=== PATIENT | female | born 1960 | race Caucasian/White ===

== ENCOUNTER 2016-11-14 16:10 | Inpatient (IN) | payer MEDICAID, OTHER ==
[~2016-11-14] VITALS: Ht 172.7 cm; Wt 81.9 kg
[~2016-11-14 16:10] MED LIST: APIX5 PO; ASPI325T24 PO; ATOR80TA41 PO; CANA100T PO; CARV12.52 PO; CONTOUR1 XX; DIGO0.25 PO; FURO1TAB93 PO; GLUC1000 PO; GLUCOMETER XX; GLUCOMTESTSTRIPS XX; GLYB5TAB3 PO; KCL10C PO; LISI2.5T3 PO; PACE200T4 PO; PERC10TA27 PO; ULTR50TA PO; WALKER ROLLING
[2016-11-14 16:12] VITALS: BP 108/63; PULSE 71; RESP 18; TEMP 97.9; O2SAT 97
[2016-11-14] MEDS ORDERED: METF1000 PO (16:35)
[2016-11-14] MEDS ORDERED: APIX5TAB PO (16:35)
[2016-11-14] MEDS ORDERED: GLYB2.5T3 PO (16:35)
[2016-11-14] MEDS ORDERED: SPIR25TA PO (16:35)
[2016-11-14] MEDS ORDERED: CARV25TA PO (16:35)
[2016-11-14] MEDS ORDERED: ATOR1TAB18 PO (16:35)
[2016-11-14] MEDS ORDERED: FURO40TA PO (16:35)
[2016-11-14] MEDS ORDERED: LISI10TA3 PO (16:35)
[2016-11-14] MEDS ORDERED: ASPI-110 PO (16:35)
[2016-11-14] MEDS ORDERED: CANA100T PO (16:35)
[2016-11-14] MEDS ORDERED: CLINDAMYCIN INJ 600 MG in SODIUM CHLORIDE 0.9% INJ 100 ML IV ONE (16:45)
--- NOTE | 2016-11-14 16:56 | PD ---
HPI Chief Complaint: Skin Problem Time Seen by Provider: 16:25 Travel History International Travel<30 days: No Contact w/Intl Traveler<30days: No Traveled to known affect area: No History of Present Illness HPI So 56-year-old woman who presents emergent arm with pain and redness in her left second toe now radiating up her leg. She first noticed the toe pain redness and swelling 2 days ago. Since that time she's had streaking redness all the way up her leg and now has patchy redness on her upper thigh and tender lymph nodes. No fevers or chills. No history of previous similar symptoms. No leg swelling. Patient has a history of significant CHF, CAD, diabetes, hypertension, hyperlipidemia, and A. fib. She is on Eliquis. History Past Medical History Narrative Medical CAD, history of CABG CHF Diabetes Hypertension on hyperlipidemia A. fib, on Eliquis Tetanus Vaccination: Unknown Influenza Vaccination: No Menopausal: Yes Social History Alcohol Use: No Tobacco Use: No Allergies-Medications (Allergen,Severity, Reaction): Coded Allergies: No Known Allergies (Unverified , 11/14/16) Reported Meds & Prescriptions Reported Meds & Active Scripts Active Reported Glyburide 2.5 Mg Tab 2.5 Mg PO BID Take with meals at the same time each day Furosemide 40 Mg Tab 40 Mg PO DAILY Carvedilol 25 Mg Tab 25 Mg PO BID Lisinopril 10 Mg Tab 10 Mg PO DAILY Spironolactone 25 Mg Tab 25 Mg PO DAILY Aspirin 81 (Aspirin) 81 Mg Tabdr 81 Mg PO DAILY Metformin (Metformin HCl) 1,000 Mg Tab 1,000 Mg PO BIDPC With meals Eliquis (Apixaban) 5 Mg Tab 5 Mg PO BID Atorvastatin (Atorvastatin Calcium) 80 Mg Tab 40 Mg PO HS Invokana (Canagliflozin) 100 Mg Tab 100 Mg PO DAILY Take before 1st meal of day. Review of Systems Except as stated in HPI: all other systems reviewed are Neg Physical Exam Narrative GENERAL: Well-appearing 56-year-old woman, no acute distress. SKIN: Warm and dry. HEAD: Atraumatic. Normocephalic. EYES: Pupils equal and round. No scleral icterus. No injection or drainage. ENT: No nasal bleeding or discharge. Mucous membranes pink and moist. NECK: Trachea midline. No JVD. CARDIOVASCULAR: Regular rate and rhythm. No murmur appreciated. RESPIRATORY: No accessory muscle use. Clear to auscultation. Breath sounds equal bilaterally. GASTROINTESTINAL: Abdomen soft, non-tender, nondistended. Hepatic and splenic margins not palpable. MUSCULOSKELETAL: No obvious deformities. Left second toe is diffusely edematous and swollen with erythema redness tenderness. There is 2 areas of ulceration with purulent drainage. There is streaking erythema up the medial thigh and leg consistent with lymphangitis. There is tender inguinal adenopathy. Pulses are difficult to palpate. The foot is adequately perfused she does have some stigmata of chronic vascular disease. NEUROLOGICAL: Awake and alert. No obvious cranial nerve deficits. Motor grossly within normal limits. Normal speech. PSYCHIATRIC: Appropriate mood and affect; insight and judgment normal. Data Data Last Documented VS Vital Signs Date Time Temp Pulse Resp B/P Pulse Ox O2 Delivery O2 Flow Rate FiO2 11/14/16 16:12 97.9 71 18 108/63 97 Orders Complete Blood Count With Diff (11/14/16 16:45) Comprehensive Metabolic Panel (11/14/16 16:45) Blood Culture (11/14/16 16:45) Iv Access Insert/Monitor (11/14/16 16:45) Clindamycin Inj (Cleocin Inj) (11/14/16 16:45) Wound Culture And Gram Stain (11/14/16 16:46) Sodium Chlor 0.9% 1000 Ml Inj (Ns 1000 M (11/14/16 17:00) Ciprofloxacin 400 Mg Premix (Cipro 400 M (11/14/16 17:15) Labs Laboratory Tests Test 11/14/16 16:50 White Blood Count 8.3 TH/MM3 Red Blood Count 4.16 MIL/MM3 Hemoglobin 12.3 GM/DL Hematocrit 36.9 % Mean Corpuscular Volume 88.6 FL Mean Corpuscular Hemoglobin 29.4 PG Mean Corpuscular Hemoglobin 33.2 % Concent Red Cell Distribution Width 13.5 % Platelet Count 181 TH/MM3 Mean Platelet Volume 8.7 FL Neutrophils (%) (Auto) 64.6 % Lymphocytes (%) (Auto) 26.1 % Monocytes (%) (Auto) 6.5 % Eosinophils (%) (Auto) 0.6 % Basophils (%) (Auto) 2.2 % Neutrophils # (Auto) 5.3 TH/MM3 Lymphocytes # (Auto) 2.2 TH/MM3 Monocytes # (Auto) 0.5 TH/MM3 Eosinophils # (Auto) 0.0 TH/MM3 Basophils # (Auto) 0.2 TH/MM3 CBC Comment DIFF FINAL Differential Comment Sodium Level 140 MEQ/L Potassium Level 3.9 MEQ/L Chloride Level 103 MEQ/L Carbon Dioxide Level 27.9 MEQ/L Anion Gap 9 MEQ/L Blood Urea Nitrogen 22 MG/DL Creatinine 0.85 MG/DL Estimat Glomerular Filtration 69 ML/MIN Rate Random Glucose 138 MG/DL Calcium Level 8.5 MG/DL Total Bilirubin 0.4 MG/DL Aspartate Amino Transf 26 U/L (AST/SGOT) Alanine Aminotransferase 34 U/L (ALT/SGPT) Alkaline Phosphatase 59 U/L Total Protein 8.1 GM/DL Albumin 3.1 GM/DL [facility] Medical Decision Making Medical Screen Exam Complete: Yes Emergency Medical Condition: Yes Interpretation(s) LABS: CBC unremarkable CMP unremarkable Differential Diagnosis Lymphangitis, cellulitis, diabetic foot infection, sepsis, other Narrative Course Medical decision making So 56-year-old woman presents emergent or the diabetic toe infection associated with no lymphangitis. Wound culture was obtained from purulent drainage from the toe. We'll check labs, IV antibiotics, admission. Diagnosis Primary Impression: Lymphangitis Shmuel Mcneal MD Nov 14, 2016 16:56
[2016-11-14] MEDS ORDERED: SODIUM CHLOR 0.9% 1000 ML INJ 1,000 ML IV SCH (17:00)
[2016-11-14 17:06] LABS: AUTOMATED NEUTROPHIL # 5.3 TH/MM3 (1.8-7.7); BASOPHIL # 0.2 TH/MM3 (0-0.2); BASOPHIL % 2.2 % (0.0-2.0); EOSINOPHIL % 0.6 % (0.0-4.0); HEMATOCRIT 36.9 % (35.0-46.0); HEMO FLAGS DIFF FINAL; LYMPH % 26.1 % (9.0-44.0); LYMPHOCYTE # 2.2 TH/MM3 (1.0-4.8); MEAN CELL VOLUME 88.6 FL (80.0-100.0); MEAN CORPUSCULAR HEMOGLOBIN 29.4 PG (27.0-34.0); MEAN CORPUSCULAR HGB CONC 33.2 % (32.0-36.0); MONO % 6.5 % (0.0-8.0); NEUT % 64.6 % (16.0-70.0); PLATELET COUNT 181 TH/MM3 (150-450); RED BLOOD COUNT 4.16 MIL/MM3 (4.00-5.30); RED CELL DISTRIBUTION WIDTH 13.5 % (11.6-17.2); WHITE BLOOD COUNT 8.3 TH/MM3 (4.0-11.0)
[2016-11-14 17:15] LABS: CHLORIDE 103 MEQ/L (98-107); POTASSIUM 3.9 MEQ/L (3.5-5.1); SODIUM (NA) 140 MEQ/L (136-145)
[2016-11-14] MEDS ORDERED: CIPROFLOXACIN 400 MG PREMIX 200 ML IV ONE (17:15)
[2016-11-14 17:18] LABS: ANION GAP 9 MEQ/L (5-15); BICARBONATE 27.9 MEQ/L (21.0-32.0)
[2016-11-14 17:19] LABS: BLOOD UREA NITROGEN 22 MG/DL (7-18)
[2016-11-14 17:21] LABS: ALT (GPT) 34 U/L (10-53); AST (GOT) 26 U/L (15-37)
[2016-11-14 17:22] LABS: GLOMERULAR FILTRATION RATE 69 ML/MIN (>89)
[2016-11-14 17:23] LABS: TOTAL BILIRUBIN ADULT 0.4 MG/DL (0.2-1.0)
[2016-11-14 17:24] LABS: ALKALINE PHOSPHATASE 59 U/L (45-117)
[2016-11-14] MEDS ORDERED: GLUCAGON 1 MG/ML VIAL OTHER PRN (18:00)
[2016-11-14] MEDS ORDERED: BISACODYL 10 MG SUPP PR PRN (18:00)
[2016-11-14] MEDS ORDERED: NALOXONE HCL 0.4 MG/ML AMP IV PRN (18:00)
[2016-11-14] MEDS ORDERED: ACETAMINOPHEN 325 MG TAB PO PRN (18:00)
[2016-11-14] MEDS ORDERED: DEXTROSE 50% IN WATER 50 ML VIAL(D50) IV PUSH PRN (18:00)
[2016-11-14 18:30] VITALS: BP 121/61; PULSE 79; RESP 18; O2SAT 99
[2016-11-14] MEDS: metFORMIN HCL 500 MG TAB PO SCH (18:41)
[2016-11-14 19:37] VITALS: BP 118/55; PULSE 62; RESP 18; O2SAT 98
[2016-11-14] MEDS: APIXABAN 5 MG TABLET PO SCH (20:05)
[2016-11-14] MEDS: ATORVASTATIN 40 MG TAB PO SCH (20:05)
[2016-11-14] MEDS: glyBURIDE 2.5 MG TAB PO SCH (20:05)
[2016-11-14] MEDS: CARVEDILOL 12.5 MG TAB PO SCH ×2 (20:06→21:00)
[2016-11-14] MEDS: INSULIN NovoLIN REGULAR SUPPLEMENTAL SCALE SQ SCH (20:12)
[2016-11-14] MEDS ORDERED: CARVEDILOL 12.5 MG TAB PO SCH (21:00)
[2016-11-14 22:18] VITALS: BP 114/65; PULSE 60; RESP 16; TEMP 97.5; O2SAT 99
[2016-11-14] MEDS: SODIUM CHLORIDE 0.9% FLUSH 5 ML FLUSH FLUSH SCH (23:08)
[2016-11-14] MEDS: CLINDAMYCIN INJ 600 MG in SODIUM CHLORIDE 0.9% INJ 100 ML IV SCH (23:08)
[2016-11-14] MEDS: ACETAMINOPHEN/HYDROcodone 325 MG/7.5 MG TAB PO PRN (23:16)
[2016-11-15 00:24] VITALS: BP 116/71; PULSE 67; RESP 16; TEMP 98.3; O2SAT 100
[2016-11-15] MEDS: ACETAMINOPHEN/HYDROcodone 325 MG/7.5 MG TAB PO PRN ×5 (05:18→23:07)
[2016-11-15] MEDS: CLINDAMYCIN INJ 600 MG in SODIUM CHLORIDE 0.9% INJ 100 ML IV SCH (05:18)
[2016-11-15] MEDS: glyBURIDE 2.5 MG TAB PO SCH ×2 (06:28→16:52)
[2016-11-15] MEDS: INSULIN NovoLIN REGULAR SUPPLEMENTAL SCALE SQ SCH ×4 (06:28→20:09)
[2016-11-15] MEDS ORDERED: glyBURIDE 2.5 MG TAB PO SCH (07:00)
[2016-11-15 07:34] LABS: CHLORIDE 105 MEQ/L (98-107); POTASSIUM 3.8 MEQ/L (3.5-5.1); SODIUM (NA) 143 MEQ/L (136-145)
[2016-11-15 07:41] LABS: ANION GAP 8 MEQ/L (5-15); BICARBONATE 30.3 MEQ/L (21.0-32.0)
[2016-11-15 07:42] LABS: BLOOD UREA NITROGEN 19 MG/DL (7-18)
[2016-11-15 07:44] LABS: ALT (GPT) 28 U/L (10-53)
[2016-11-15 07:45] LABS: AST (GOT) 20 U/L (15-37); GLOMERULAR FILTRATION RATE 94 ML/MIN (>89)
[2016-11-15 07:46] LABS: TOTAL BILIRUBIN ADULT 0.4 MG/DL (0.2-1.0)
[2016-11-15 07:47] LABS: ALKALINE PHOSPHATASE 54 U/L (45-117)
[2016-11-15 08:00] VITALS: BP 122/69; PULSE 63; RESP 18; TEMP 98.2; O2SAT 99
[2016-11-15] MEDS ORDERED: INVOKANA 100 MG PO SCH (08:00)
--- NOTE | 2016-11-15 08:48 | RADHPO ---
EXAM DATE/TIME: 11/15/2016 08:32 [place] COMPARISON: No previous studies available for comparison. INDICATIONS : Infected left 2nd toe, with redness radiating up left leg, Dropped a can on toe MEDICAL HISTORY : Congestive heart failure. Chronic obstructive pulmonary disease. Diabetes mellitus type II. SURGICAL HISTORY : CABG. ENCOUNTER: Initial ACUITY: 3 days PAIN SCORE: 9/10 LOCATION: Left 2nd toe FINDINGS: Three view examination of the left foot demonstrates no soft tissue swelling, dislocation, or fractur e. The tarsal bones appear intact. The interphalangeal and metatarsophalangeal joints are intact. The calcaneus is intact. Bony mineralization is normal. CONCLUSION: 1. No acute bony abnormalities identified. Josef Mao MD on November 15, 2016 at 8:46 Board Certified Radiologist. This report was verified electronically.
[2016-11-15] MEDS: FUROSEMIDE 40 MG TAB PO SCH (09:13)
[2016-11-15] MEDS: APIXABAN 5 MG TABLET PO SCH ×2 (09:13→20:21)
[2016-11-15] MEDS: metFORMIN HCL 500 MG TAB PO SCH ×2 (09:13→16:52)
[2016-11-15] MEDS: SPIRONOLACTONE 25 MG TAB PO SCH (09:13)
[2016-11-15] MEDS: LISINOPRIL 10 MG TAB PO SCH (09:13)
[2016-11-15] MEDS: INVOKANA 100 MG PO SCH (09:13)
[2016-11-15] MEDS: ASPIRIN EC 81 MG TABEC PO SCH (09:14)
[2016-11-15] MEDS: CARVEDILOL 12.5 MG TAB PO SCH ×2 (09:14→20:21)
[2016-11-15] MEDS: SODIUM CHLORIDE 0.9% FLUSH 5 ML FLUSH FLUSH SCH ×2 (09:16→20:22)
[2016-11-15] MEDS ORDERED: VANCOMYCIN INJ 1,000 MG in SODIUM CHLOR 0.9% 250 ML INJ 250 ML IV ONE (10:15)
[2016-11-15] MEDS ORDERED: Vancomycin Consult Pharmacy 1 EA OTHER SCH (10:15)
[2016-11-15 12:00] VITALS: BP 116/66; PULSE 56; RESP 19; TEMP 97.5; O2SAT 100
--- NOTE | 2016-11-15 12:12 | HHI.HP ---
[facility] Service [facility] Primary Care Physician Non-Staff Admission Diagnosis lymphangitis Diagnoses: (1) Lymphangitis Diagnosis: Principal (2) Cellulitis of toe of left foot Diagnosis: Principal Chief Complaint: Left foot second toe pain and swelling Travel History International Travel<30 Days: No Contact w/Intl Traveler <30 Da: No Traveled to Known Affected Are: No History of Present Illness 56-year-old female with rather complex medical history with hypertension, hyperlipidemia, coronary artery disease status post bypass surgery , diabetes, chronic atrial fibrillation, ischemic cardiomyopathy, congestive heart failure, history of MRSA infection of the sternum who presented to the hospital because of pain and swelling of her left foot second toe. Patient states that 3 days ago she dropped a can on her toe and since then is started developing pain, swelling, redness. She noticed red streaks going up her left leg and she was concerned so she came to the hospital for evaluation. Patient denies any fever, chills, night sweats, rigors. ER physician evaluated the patient and recommended observation the hospital. Review of Systems Constitutional: DENIES: Diaphoretic episodes, Fatigue, Fever, Weight gain, Weight loss, Chills, Dizziness, Change in appetite, Night Sweats Eyes: DENIES: Blurred vision, Diplopia, Eye inflammation, Eye pain, Vision loss , Double Vision Ears, nose, mouth, throat: DENIES: Vertigo, Nasal discharge, Throat pain, Ear Pain, Running Nose, Sinus Pain Respiratory: DENIES: Apneas, Cough, Snoring, Wheezing, Hemoptysis, Sputum production, Shortness of breath Cardiovascular: DENIES: Chest pain, Palpitations, Syncope, Dyspnea on Exertion , Lower Extremity Edema, Orthopnea Gastrointestinal: DENIES: Abdominal pain, Black stools, Bloody stools, Constipation, Diarrhea, Nausea, Vomiting, Difficulty Swallowing, Anorexia Neurologic: DENIES: Abnormal gait, Headache, Localized weakness, Paresthesias, Seizures, Speech Problems, Tremor, Poor Balance Past Family Social History Past Medical History Hypertension Hyperlipidemia Chronic atrial fibrillation Ischemic cardiomyopathy Coronary artery disease Diabetes History of MRSA infection of the sternum Chronic affective pulmonary disease Past Surgical History Coronary bypass surgery Incision and debridement of skin/sternum infection Cholecystectomy Reported Medications Reported Meds & Active Scripts Active Reported Glyburide 2.5 Mg Tab 2.5 Mg PO BID Take with meals at the same time each day Furosemide 40 Mg Tab 40 Mg PO DAILY Carvedilol 25 Mg Tab 25 Mg PO BID Lisinopril 10 Mg Tab 10 Mg PO DAILY Spironolactone 25 Mg Tab 25 Mg PO DAILY Aspirin 81 (Aspirin) 81 Mg Tabdr 81 Mg PO DAILY Metformin (Metformin HCl) 1,000 Mg Tab 1,000 Mg PO BIDPC With meals Eliquis (Apixaban) 5 Mg Tab 5 Mg PO BID Atorvastatin (Atorvastatin Calcium) 80 Mg Tab 40 Mg PO HS Invokana (Canagliflozin) 100 Mg Tab 100 Mg PO DAILY Take before 1st meal of day. Allergies: Coded Allergies: Cipro (Verified Allergy, Intermediate, Itching , 11/14/16) Family History Reviewed is significant for mother having emphysema/COPD Social History Patient quit smoking July 2015, prior to that she smoked one pack a cigarettes a day since she was teenager. Patient drinks alcohol rarely. Patient does smoke marijuana intermittently. Last time she smoked marijuana was 1 1/2 wk ago Physical Exam Vital Signs Vital Signs Date Time Temp Pulse Resp B/P Pulse Ox O2 Delivery O2 Flow Rate FiO2 11/15/16 08:00 98.2 63 18 122/69 99 11/15/16 00:24 98.3 67 16 116/71 100 11/15/16 00:16 18 11/14/16 22:18 97.5 60 16 114/65 99 11/14/16 19:37 62 18 118/55 98 Room Air 11/14/16 19:37 62 18 11/14/16 18:30 79 18 121/61 99 Room Air 11/14/16 16:12 97.9 71 18 108/63 97 Physical Exam GENERAL: Well-developed, well-nourished, in no acute distress. alert and orientated HEENT: Head is normocephalic without any lesions or masses noted. Facial features are symmetric. Eyes: Pupils equal round reactive to light. Extraocular muscles are intact. Conjunctivae were clear. Oropharyngeal: Pharynx without any erythema edema. Tongue is midline without deviation. Buccal mucosa is moist without any masses or lesions NECK: Supple without any masses. Trachea midline no deviation. No JVD, no bruits are appreciated CARDIAC: Regular rhythm, regular rate. S1/S2 are heard. No murmurs gallops or rubs. LUNGS: Clear to auscultation bilaterally. No wheeze, rhonchi or rales. No use of accessory muscles on inspiration or expiration. ABDOMEN: Soft, nontender. Nondistended. Bowel sounds heard in all 4 quadrants. No organomegaly or masses. Negative rebound, negative guarding EXTREMITIES: No edema, pulses are diminished bilaterally. Are able to find by Doppler. No cyanosis or clubbing NEUROLOGY: Mood and affect appear appropriate. Cranial nerves II through XII grossly intact. Muscle strength 5/5 in upper and lower extremities bilaterally. Deep tendon reflexes are 2+ in upper and lower extremities bilaterally. LEFT FOOT: Left foot second digit significant erythema. There is eschar noted on the plantar surface of the lateral aspect. There does appear to be a pustule noted on the medial aspect of the plantar surface of the toe. There is lymphangitis streaking up the medial aspect of her left calf area and erythema noted into the left medial thigh Laboratory Laboratory Tests Test 11/14/16 11/15/16 16:50 06:39 White Blood Count 8.3 Red Blood Count 4.16 Hemoglobin 12.3 Hematocrit 36.9 Mean Corpuscular Volume 88.6 Mean Corpuscular Hemoglobin 29.4 Mean Corpuscular Hemoglobin 33.2 Concent Red Cell Distribution Width 13.5 Platelet Count 181 Mean Platelet Volume 8.7 Neutrophils (%) (Auto) 64.6 Lymphocytes (%) (Auto) 26.1 Monocytes (%) (Auto) 6.5 Eosinophils (%) (Auto) 0.6 Basophils (%) (Auto) 2.2 Neutrophils # (Auto) 5.3 Lymphocytes # (Auto) 2.2 Monocytes # (Auto) 0.5 Eosinophils # (Auto) 0.0 Basophils # (Auto) 0.2 CBC Comment DIFF FINAL Differential Comment Erythrocyte Sedimentation Rate 78 Sodium Level 140 143 Potassium Level 3.9 3.8 Chloride Level 103 105 Carbon Dioxide Level 27.9 30.3 Anion Gap 9 8 Blood Urea Nitrogen 22 19 Creatinine 0.85 0.65 Estimat Glomerular Filtration 69 94 Rate Random Glucose 138 77 Calcium Level 8.5 8.6 Total Bilirubin 0.4 0.4 Aspartate Amino Transf 26 20 (AST/SGOT) Alanine Aminotransferase 34 28 (ALT/SGPT) Alkaline Phosphatase 59 54 C-Reactive Protein 5.30 Total Protein 8.1 7.2 Albumin 3.1 2.8 Date/Time Procedure Status Source Growth 11/14/16 16:55 Aerobic Blood Culture - Preliminary Resulted Blood Peripheral NO GROWTH IN 1 DAY 11/14/16 16:55 Anaerobic Blood Culture - Preliminary Resulted Blood Peripheral NO GROWTH IN 1 DAY 11/14/16 16:50 Gram Stain - Final Resulted Wound Toe 11/14/16 16:50 Wound Culture Resulted Wound Toe Pending Result Diagram: 11/14/16 1650 11/15/16 0639 Imaging Last Impressions Foot X-Ray 11/15/16 0000 Signed Impressions: Service Date/Time: Thursday, November 15, 2016 08:32 - CONCLUSION: 1. No acute bony abnormalities identified. Josef Mao MD Assessment and Plan Assessment and Plan Left foot second digit cellulitis with ascending lymphangitis: Patient was initially started on clindamycin. Patient does have history of MRSA infection as well as diabetic. Will convert antibiotics to vancomycin/Zosyn. Podiatry has been consulted. Awaiting cultures for further evaluation management. X- ray was performed which did not indicate any acute abnormality. Patient does have elevated sedimentation rate and C-reactive protein. We'll monitor closely for improvement. If no significant improvement may need to have MRI of the foot to rule out osteomyelitis. Hypertension, congestive heart failure, extremely cardiomyopathy, coronary artery disease: Continue home medications Diabetes: Accu-Cheks with sliding scale insulin Chronic obstructive point disease: Continue O2 supplementation maintain O2 sats greater than 92%. DuoNeb as needed DVT prevention patient is on Eliquis Written by Darrius Maza PA-C, acting as scribe for Dr. Thompson on 11/15/16 at 1115. The documentation accurately reflects the work and decisions performed face-to- face by Dr. Thompson on 11/15/16 at 1115. Darrius aMza Nov 15, 2016 12:12 Kirsty Thompson MD Nov 15, 2016 19:21
--- NOTE | 2016-11-15 12:17 | MB ---
cc: TIAGO ALFARO DPM DATE OF CONSULTATION: 11/15/2016 REASON FOR CONSULTATION: Left second digit cellulitis, history of injury with proximal lymphangitis. HISTORY OF PRESENT ILLNESS 56-year-old female with injury within the last few days and a redness streaking up her thigh. She has had no nausea, vomiting, fever, chills, however significant pain. PAST MEDICAL HISTORY 1. Coronary artery disease 2. History of coronary artery bypass graft. 3. Congestive heart failure. 4. Diabetes. 5. Hypertension 6. Hyperlipidemia 7. Atrial fibrillation on eliquis. 8. History of MRSA and the open heart surgery had to be reopened and she was on IV antibiotics. She is unsure the antibiotic SOCIAL HISTORY No current tobacco, alcohol, however does have a history of smoking. She quit approximately 1 year ago. ALLERGIES None listed. However, per the patient history of methicillin-resistant Staphylococcus aureus. OUTPATIENT MEDICATIONS: The outpatient medications reviewed, no antibiotics. INPATIENT MEDICATIONS: Also reviewed, she receive clindamycin. However upon speaking with DARCY Maza we decided to add Zosyn and vancomycin. PHYSICAL EXAMINATION VITAL SIGNS: Temperature 98.2, pulse rate is 63, respiratory rate 18, blood pressure 122/69. She is satting 99% on room air. HEAD, EYES, EARS, NOSE, AND THROAT: This is an alert and oriented female seen bedside exhibiting nonlabored respirations. Bilateral lower extremities examined. Right lower extremity there is a superficial abrasion of the base of the second digit. It appears to have healthy eschar however no redness, pus or drainage. Left lower extremity there is noted to be circumferential erythema of the left second digit with plantar lateral eschar measuring approximately 3 mm x 4 mm. There appears to be microabscess but there is no obvious gas there is no obvious fluctuance. There is pain upon palpation. The patient is capable of moving the digit. There is no dislocation. There is redness coming from the base of the toe, coursing up the dorsum of the foot, following lymph anatomy, coursing along the medial thigh, into the distal medial calf area. Pulses are hard to palpate but they are audible via Doppler dorsalis pedis, posterior tibialis and perforating peroneal. All toes are warm. Sensation appears to be intact to light touch and deep pressure. The patient has good muscle strength. LABORATORY FINDINGS White blood cell 0.3, hemoglobin/hematocrit 07/1936, platelet count is 181, ESR 78. Chem-7 sodium 143, potassium 3.8, chloride 105, CO2 30, BUN is 19, random glucose is 77. C-reactive protein is 5.3. X-RAYS Appear to be normal descent of gas in tissue bony erosive process fracture. ASSESSMENT/PLAN Left second digit cellulitis with proximal ascending lymphangitis is it appears that the ER doctor lanced microabscess into the cultures that cultures still pending at this time it says no organisms seen. We did change the antibiotics with vancomycin and Zosyn. This will probably help for better broad-spectrum coverage being this patient is a diabetic with history of methicillin-resistant Staphylococcus aureus. At this point and time no surgery is indicated. However if the toe declares itself or goes gangrenous or ischemic, there is a possibility. At this point and time I do feel that her circulation maybe an issue impending wound healing. She may need arterial Doppler or a vascular evaluation if the patient continues to progress poorly I will reevaluate the patient within the next 24 hours. The patient was discussed with DARCY Maza. JAZ Mercado/marino /10:24 AM /12:06 PM
[2016-11-15] MEDS: PIPERACIL-TAZO 3.375 GM PREMIX 50 ML IV SCH ×3 (13:55→23:52)
[2016-11-15 16:00] VITALS: BP 119/69; PULSE 60; RESP 19; TEMP 97; O2SAT 99
[2016-11-15] MEDS: ATORVASTATIN 40 MG TAB PO SCH (20:21)
[2016-11-15 20:31] VITALS: BP 96/58; PULSE 64; RESP 18; TEMP 98; O2SAT 98
[2016-11-15] MEDS: VANCOMYCIN INJ 1,250 MG in SODIUM CHLOR 0.9% 250 ML INJ 250 ML IV SCH (23:52)
[2016-11-16 00:56] VITALS: BP 110/52; PULSE 61; RESP 20; TEMP 97.2; O2SAT 99
[2016-11-16] MEDS: ACETAMINOPHEN/HYDROcodone 325 MG/7.5 MG TAB PO PRN ×4 (04:43→22:10)
[2016-11-16] MEDS: PIPERACIL-TAZO 3.375 GM PREMIX 50 ML IV SCH (06:18)
[2016-11-16] MEDS: glyBURIDE 2.5 MG TAB PO SCH ×2 (06:18→16:57)
[2016-11-16] MEDS: INSULIN NovoLIN REGULAR SUPPLEMENTAL SCALE SQ SCH (06:21)
[2016-11-16 08:32] VITALS: BP 131/66; PULSE 62; RESP 15; TEMP 96.3; O2SAT 98
[2016-11-16] MEDS: INVOKANA 100 MG PO SCH (08:47)
[2016-11-16] MEDS: CARVEDILOL 12.5 MG TAB PO SCH ×2 (08:48→21:17)
[2016-11-16] MEDS: APIXABAN 5 MG TABLET PO SCH ×2 (08:48→21:17)
[2016-11-16] MEDS: metFORMIN HCL 500 MG TAB PO SCH ×2 (08:48→16:57)
[2016-11-16] MEDS: SPIRONOLACTONE 25 MG TAB PO SCH (08:48)
[2016-11-16] MEDS: LISINOPRIL 10 MG TAB PO SCH (08:48)
[2016-11-16] MEDS: ASPIRIN EC 81 MG TABEC PO SCH (08:49)
[2016-11-16] MEDS: FUROSEMIDE 40 MG TAB PO SCH (08:49)
[2016-11-16] MEDS: SODIUM CHLORIDE 0.9% FLUSH 5 ML FLUSH FLUSH SCH ×2 (08:51→21:19)
--- NOTE | 2016-11-16 10:10 | HHI.PR ---
Subjective Remarks Patient seen and examined today with Dr. Thompson. Patient states she feels less pain in her legs however the toe looks more engorged erythematous and swollen which is not showing improvement on the antibiotic, patient has been afebrile, occasional low temperature Objective Vitals Vital Signs Date Time Temp Pulse Resp B/P Pulse Ox O2 Delivery O2 Flow Rate FiO2 11/16/16 08:32 96.3 62 15 131/66 98 11/16/16 00:56 97.2 61 20 110/52 99 11/15/16 20:31 98.0 64 18 96/58 98 11/15/16 16:00 97.0 60 19 119/69 99 11/15/16 12:00 97.5 56 19 116/66 100 I/O 11/15/16 11/15/16 11/15/16 11/16/16 11/16/16 11/16/16 07:00 15:00 23:00 07:00 15:00 23:00 # Voids 2 Result Diagram: 11/14/16 1650 11/15/16 0639 Objective Remarks GENERAL: Well-developed, well-nourished, in no acute distress. alert and orientated HEENT: Head is normocephalic without any lesions or masses noted. Facial features are symmetric. Eyes: Extraocular muscles are intact. Conjunctivae were clear. NECK: Supple without any masses. Trachea midline no deviation. No JVD, CARDIAC: Regular rhythm, regular rate. S1/S2 are heard. No murmurs gallops or rubs. LUNGS: Clear to auscultation bilaterally. No wheeze, rhonchi or rales. No use of accessory muscles on inspiration or expiration. ABDOMEN: Soft, nontender. Nondistended. Bowel sounds heard in all 4 quadrants. No organomegaly or masses. Negative rebound, negative guarding EXTREMITIES: No edema, pulses are diminished bilaterally. Are able to find by Doppler. No cyanosis or clubbing NEUROLOGY: Mood and affect appear appropriate. Cranial nerves II through XII grossly intact. Moving all extremities, speech is clear LEFT FOOT: Left foot second digit erythema is improving. There is eschar noted on the plantar surface of the lateral aspect. There does appear to be a pustule noted on the medial aspect of the plantar surface of the toe. There is lymphangitis streaking up the medial aspect of her left calf area and erythema noted into the left medial thigh Urinary Catheter: No Vascular Central Line Catheter: No A/P Assessment and Plan Left foot second digit cellulitis with ascending lymphangitis: Still not improving , Patient does have history of MRSA infection as well as diabetic. Continue vancomycin, discontinue Zosyn. Podiatry has been consulted. Cultures showing staph species. X-ray was performed which did not indicate any acute abnormality. Patient does have elevated sedimentation rate and C-reactive protein. We'll consult ID, will check MRI rule out posterior myelitis, monitor CBC Discussed with podiatry and PA Hypertension, congestive heart failure, extremely cardiomyopathy, coronary artery disease: Continue home medications Diabetes: Accu-Cheks with sliding scale insulin. Patient is not required any insulin. Will discontinue Accu-Cheks, sliding scale insulin. Continue to control diabetes with diet and metformin Chronic obstructive point disease: Continue O2 supplementation maintain O2 sats greater than 92%. DuoNeb as needed DVT prevention patient is on Eliquis Written by Darrius Maza PA-C, acting as scribe for Dr. Thompson on 11/16/16 at 1215. The documentation accurately reflects the work and decisions performed face-to- face by Dr. Thompson on 11/16/16 at 1215. Darrius Maza Nov 16, 2016 10:10 Kirsty Thompson MD Nov 16, 2016 16:21
--- NOTE | 2016-11-16 11:07 | PD.POD ---
Subjective Pain score: 6 Remarks toe is burning with mild grown pain, not much better. Past Med/Surg/Social History Past Medical History Respiratory: REPORTS HX OF: COPD Cardiovascular: REPORTS HX OF: Atrial fibrillation, Coronary artery disease, Heart failure, Hyperlipidemia, Hypertension, Myocardial infarction Past Surgical History Gastrointestinal: REPORTS HX OF: Cholecystectomy, DENIES HX OF: Colectomy, total Gynecologic: DENIES HX OF: Hysterectomy Breast: DENIES HX OF: Mastectomy, bilateral (Mammogram 2014), Mastectomy, left , Mastectomy, right Social History Smoking Status: Former Smoker Objective Vital Signs Vital Signs Date Time Temp Pulse Resp B/P Pulse Ox O2 Delivery O2 Flow Rate FiO2 11/16/16 08:32 96.3 62 15 131/66 98 11/16/16 00:56 97.2 61 20 110/52 99 11/15/16 20:31 98.0 64 18 96/58 98 11/15/16 16:00 97.0 60 19 119/69 99 11/15/16 12:00 97.5 56 19 116/66 100 Coded Allergies: Cipro (Verified Allergy, Intermediate, Itching , 11/14/16) Medications and IVs Administered Medications Medications (Trade) Dose Ordered Sig/Johnnie Route PRN Reason Start Time Stop Time Status Last Admin Dose Admin IV Flush (NS Flush) 2 ml BID FLUSH 11/14/16 21:00 11/16/16 08:51 Acetaminophen/ Hydrocodone Bitart ([place] 7.5-325 Mg) 1 tab Q4H PRN PO PAIN SCALE 6 TO 10 11/14/16 18:00 11/16/16 08:46 Apixaban (Eliquis) 5 mg BID PO 11/14/16 21:00 11/16/16 08:48 Aspirin (Ecotrin Ec) 81 mg DAILY PO 11/15/16 09:00 11/16/16 08:49 Atorvastatin Calcium (Lipitor) 40 mg HS PO 11/14/16 21:00 11/15/16 20:21 Furosemide (Lasix) 40 mg DAILY PO 11/15/16 09:00 11/16/16 08:49 Lisinopril (Prinivil) 10 mg DAILY PO 11/15/16 09:00 11/16/16 08:48 Metformin HCl (Glucophage) 1,000 mg BIDPC PO 11/14/16 18:00 11/16/16 08:48 Spironolactone (Aldactone) 25 mg DAILY PO 11/15/16 09:00 11/16/16 08:48 Carvedilol (Coreg) 25 mg BID PO 11/14/16 19:30 11/16/16 08:48 Glyburide (Diabeta) 2.5 mg BIDAC PO 11/14/16 19:30 11/16/16 06:18 Patient Own Medication PT OWN MED:INVOKANA 100MG DAILYAC PO 11/15/16 08:00 11/16/16 08:47 Vancomycin HCl/ Sodium Chloride (Vancomycin Inj/ NS 250 ml Inj) 262.5 ml @ 250 mls/hr Q12H IV 11/16/16 00:00 11/15/16 23:52 Other Results Laboratory Tests Test 11/14/16 16:50 White Blood Count 8.3 TH/MM3 Red Blood Count 4.16 MIL/MM3 Hemoglobin 12.3 GM/DL Hematocrit 36.9 % Mean Corpuscular Volume 88.6 FL Mean Corpuscular Hemoglobin 29.4 PG Mean Corpuscular Hemoglobin 33.2 % Concent Red Cell Distribution Width 13.5 % Platelet Count 181 TH/MM3 Mean Platelet Volume 8.7 FL Neutrophils (%) (Auto) 64.6 % Lymphocytes (%) (Auto) 26.1 % Monocytes (%) (Auto) 6.5 % Eosinophils (%) (Auto) 0.6 % Basophils (%) (Auto) 2.2 % Neutrophils # (Auto) 5.3 TH/MM3 Lymphocytes # (Auto) 2.2 TH/MM3 Monocytes # (Auto) 0.5 TH/MM3 Eosinophils # (Auto) 0.0 TH/MM3 Basophils # (Auto) 0.2 TH/MM3 CBC Comment DIFF FINAL Differential Comment Erythrocyte Sedimentation Rate 78 mm/hr Laboratory Tests Test 11/14/16 11/15/16 16:50 06:39 Sodium Level 140 MEQ/L 143 MEQ/L Potassium Level 3.9 MEQ/L 3.8 MEQ/L Chloride Level 103 MEQ/L 105 MEQ/L Carbon Dioxide Level 27.9 MEQ/L 30.3 MEQ/L Anion Gap 9 MEQ/L 8 MEQ/L Blood Urea Nitrogen 22 MG/DL 19 MG/DL Creatinine 0.85 MG/DL 0.65 MG/DL Estimat Glomerular Filtration 69 ML/MIN 94 ML/MIN Rate Random Glucose 138 MG/DL 77 MG/DL Calcium Level 8.5 MG/DL 8.6 MG/DL Total Bilirubin 0.4 MG/DL 0.4 MG/DL Aspartate Amino Transf 26 U/L 20 U/L (AST/SGOT) Alanine Aminotransferase 34 U/L 28 U/L (ALT/SGPT) Alkaline Phosphatase 59 U/L 54 U/L C-Reactive Protein 5.30 MG/DL Total Protein 8.1 GM/DL 7.2 GM/DL Albumin 3.1 GM/DL 2.8 GM/DL Microbiology Date/Time Procedure Status Source Growth 11/14/16 16:50 Aerobic Blood Culture - Preliminary Resulted Blood Peripheral NO GROWTH IN 1 DAY 11/14/16 16:50 Anaerobic Blood Culture - Preliminary Resulted Blood Peripheral NO GROWTH IN 1 DAY 11/14/16 16:50 Gram Stain - Final Resulted Wound Toe 11/14/16 16:50 Wound Culture - Preliminary Resulted Staphylococcus Species 11/14/16 16:55 Aerobic Blood Culture - Preliminary Resulted Blood Peripheral NO GROWTH IN 1 DAY 11/14/16 16:55 Anaerobic Blood Culture - Preliminary Resulted Blood Peripheral NO GROWTH IN 1 DAY awaiting sens Exam-Podiatry Remarks Left foot with 2nd digit entire digit redness with plantar latera eschar and plantar medial micro abscess, red streaking remains along the medial calf and leg Assessment & Plan A/P Left 2nd digit micro abscess eschar with cellulitis. Continue IV ABX awaiting Sens of staph, no surgery planned at this point, no open wound, will continue to be available, if no improvement over next day, may recommend MRI left foot. Juanjo Sweet DPM Nov 16, 2016 11:07
[2016-11-16] MEDS: VANCOMYCIN INJ 1,250 MG in SODIUM CHLOR 0.9% 250 ML INJ 250 ML IV SCH ×2 (12:08→23:49)
[2016-11-16 12:43] VITALS: BP 113/62; PULSE 59; RESP 15; TEMP 97.9; O2SAT 98
[2016-11-16] MEDS: ACETAMINOPHEN/HYDROcodone 325 MG/5 MG TAB PO PRN (13:39)
[2016-11-16 17:16] VITALS: BP 112/71; PULSE 61; RESP 14; TEMP 97.9; O2SAT 97
--- NOTE | 2016-11-16 17:27 | PD.CONS ---
History of Present Illness Service Infectious disease Consult Requested By Dr Thompson Reason for Consult Evaluate patient with toe infection, not improving Primary Care Physician Non-Staff Diagnoses: History of Present Illness Patient seen and examined. Records reviewed. Patient is a 56-year-old female presented to the hospital when she had noticed redness and swelling of her left second toe. She doesn't really remember how she got it. There was mention that she might have dropped a can on her toe. She has neuropathy and really could not recall any incident or any injury due to her neuropathy. She walks around in the yard usually wearing flip-flops. She has not had any recollection of any puncture wound. She started noticing redness going up her foot and leg. There was an area of swelling on the lateral aspect of that second toe, and her friends tried squeezing it but nothing came out. She presented to the hospital for further evaluation and treatment. Apparently in the ED they took some culture from some pustules that was noted on her second toe. She has not been febrile. Her WBC on admission was normal. Sedimentation rate is 78, and C-reactive protein was 5.3. Patient has been on IV vancomycin and Zosyn. The culture from the ED is growing 1 CFU all staph species. X-ray of the toe did not show any evidence of abnormality. Podiatry has been following the patient. Infectious disease consultation has been requested to evaluate the patient. Review of Systems Constitutional: DENIES: Fever, Chills, Night Sweats Eyes: DENIES: Eye pain Ears, nose, mouth, throat: DENIES: Nasal discharge, Oral lesions, Throat pain, Ear Pain, Sinus Pain Respiratory: DENIES: Cough, Shortness of breath Cardiovascular: DENIES: Chest pain, Palpitations, Syncope Gastrointestinal: DENIES: Abdominal pain, Diarrhea, Nausea, Vomiting, Difficulty Swallowing Genitourinary: DENIES: Urinary frequency, Dysuria Musculoskeletal: DENIES: Joint pain, Joint Swelling Integumentary: DENIES: Rash Neurologic: DENIES: Headache Psychiatric: DENIES: Confusion, Hallucinations Past Family Social History Allergies: Coded Allergies: Cipro (Verified Allergy, Intermediate, Itching , 11/14/16) Past Medical History Hypertension Hyperlipidemia Chronic atrial fibrillation Ischemic cardiomyopathy Coronary artery disease Diabetes History of sternal wound infection treated with debridement, wound VAC, and several weeks of IV antibiotics Chronic affective pulmonary disease Past Surgical History Coronary artery bypass surgery February 2016 Incision and debridement of wound infection Cholecystectomy Active Ordered Medications Tylenol [place] Eliquis Aspirin Lipitor Dulcolax Coreg Lasix DiaBeta Prinivil Glucophage Zofran Invokana Aldactone Vancomycin Social History Patient quit smoking July 2015, prior to that she smoked one pack a cigarettes a day since she was teenager. Patient drinks alcohol rarely. Patient does smoke marijuana intermittently. Last time she smoked marijuana was 1 1/2 wk ago Physical Exam Vital Signs Vital Signs Date Time Temp Pulse Resp B/P Pulse Ox O2 Delivery O2 Flow Rate FiO2 11/16/16 17:16 97.9 61 14 112/71 97 11/16/16 12:43 97.9 59 15 113/62 98 11/16/16 08:32 96.3 62 15 131/66 98 11/16/16 00:56 97.2 61 20 110/52 99 11/15/16 20:31 98.0 64 18 96/58 98 Physical Exam GENERAL: This is a well-nourished, well-developed female, awake and alert, in no apparent distress. SKIN: Cool and dry, no generalized rash or ecchymosis. No embolic lesions noted. HEAD: Atraumatic. Normocephalic. No temporal or scalp tenderness. EYES: [place] conjunctivae. Pupils equal round and reactive. Extraocular motions intact. No scleral icterus. No injection or drainage. ENT: Nose without bleeding, or purulent drainage. Moist oral mucosa. Throat without erythema, or exudate. Uvula midline. Airway patent. NECK: Trachea midline. No JVD or lymphadenopathy. Supple, nontender, no meningeal signs. CARDIOVASCULAR: Regular rate and rhythm without murmurs, gallops, or rubs. Healed sternotomy incision. RESPIRATORY: Clear to auscultation. Breath sounds equal bilaterally. No wheezes , rales, or rhonchi. GASTROINTESTINAL: Abdomen soft, non-tender, nondistended. Bowel sounds are present and normoactive. No hepato-splenomegaly, or palpable masses. No guarding. MUSCULOSKELETAL: RLE: unremarkable, without clubbing, cyanosis, or edema. No joint tenderness, effusion, or edema noted. No calf tenderness. LLE: Has red and swollen second toe with a pustule at tip. There is a black scab lateral to the pustule. She has nodular lymphangitis going up dorsum of her L foot, whole leg, and has several tender LN in her L groin. No joint effusion, no calf tenderness. NEUROLOGICAL: Awake and alert. Cranial nerves II through XII intact. Motor and sensory grossly within normal limits. Five out of 5 muscle strength in all muscle groups. Normal speech. PSYCH: Normal affect, calm and cooperative LINE: PIV with no evidence of infection Laboratory Date/Time Procedure Status Source Growth 11/14/16 16:55 Aerobic Blood Culture - Preliminary Resulted Blood Peripheral NO GROWTH IN 2 DAYS 11/14/16 16:55 Anaerobic Blood Culture - Preliminary Resulted Blood Peripheral NO GROWTH IN 2 DAYS 11/14/16 16:50 Gram Stain - Final Resulted Wound Toe 11/14/16 16:50 Wound Culture - Preliminary Resulted Staphylococcus Species Result Diagram: 11/14/16 1650 11/15/16 0639 Imaging RADIOLOGY STUDIES/FILMS REVIEWED Foot X-Ray 11/15/16 0000 Signed Impressions: Service Date/Time: Tuesday, November 15, 2016 08:32 - CONCLUSION: 1. No acute bony abnormalities identified. Josef Mao MD Assessment and Plan Assessment and Plan IMPRESSION Infection L 2nd toe, with nodular lymphangitis, etiology>? - ?usual pathogens, vs unusual pathogens like nocardia, atypical mycobacterial, fungal though not really getting any history for that Known DM CAD RECOMMENDATION Continue Vanco Would like to keep GNR coverage until work-up results available Add Biaxin and Bactrim I obtained C/S from the pustule and will send for routine, AFB and fungal May need to do LN biopsy if not improving Monitor progress I will follow along with you Thank you for this consultation Discussed Condition With Explained plan to the patient Svetlana Yeh MD Nov 16, 2016 17:27
[2016-11-16] MEDS: CEFEPIME INJ 2,000 MG in SODIUM CHLORIDE 0.9% INJ 100 ML IV SCH (18:15)
[2016-11-16] MEDS: SULFAMETHOXAZOLE-TRIMETHOPRIM DS 800-160 MG TAB PO SCH (18:15)
[2016-11-16 21:00] VITALS: BP 120/76; PULSE 66; RESP 16; TEMP 98; O2SAT 98
[2016-11-16] MEDS: ATORVASTATIN 40 MG TAB PO SCH (21:17)
[2016-11-16] MEDS: CLARITHROMYCIN 500 MG TAB PO SCH (21:17)
[2016-11-16] MEDS ORDERED: PHARMACY ORDERED LAB XX ONE (23:45)
[2016-11-17 01:17] VITALS: BP 113/63; PULSE 64; RESP 18; TEMP 98.2; O2SAT 98
[2016-11-17] MEDS: SULFAMETHOXAZOLE-TRIMETHOPRIM DS 800-160 MG TAB PO SCH ×3 (02:53→16:48)
[2016-11-17] MEDS: ACETAMINOPHEN/HYDROcodone 325 MG/7.5 MG TAB PO PRN ×5 (02:53→20:56)
[2016-11-17 06:09] LABS: AUTOMATED NEUTROPHIL # 6.2 TH/MM3 (1.8-7.7); BASOPHIL % 0.5 % (0.0-2.0); EOSINOPHIL # 0.1 TH/MM3 (0-0.4); EOSINOPHIL % 1.2 % (0.0-4.0); HEMATOCRIT 36.8 % (35.0-46.0); HEMO FLAGS DIFF FINAL; LYMPH % 24.5 % (9.0-44.0); LYMPHOCYTE # 2.3 TH/MM3 (1.0-4.8); MEAN CELL VOLUME 89.6 FL (80.0-100.0); MEAN CORPUSCULAR HEMOGLOBIN 30.4 PG (27.0-34.0); MONO % 6.4 % (0.0-8.0); NEUT % 67.4 % (16.0-70.0); PLATELET COUNT 223 TH/MM3 (150-450); RED BLOOD COUNT 4.11 MIL/MM3 (4.00-5.30); RED CELL DISTRIBUTION WIDTH 13.2 % (11.6-17.2); WHITE BLOOD COUNT 9.2 TH/MM3 (4.0-11.0)
[2016-11-17] MEDS: CEFEPIME INJ 2,000 MG in SODIUM CHLORIDE 0.9% INJ 100 ML IV SCH ×2 (06:16→16:47)
[2016-11-17] MEDS: glyBURIDE 2.5 MG TAB PO SCH ×2 (06:16→16:48)
[2016-11-17 06:21] LABS: POTASSIUM 3.7 MEQ/L (3.5-5.1)
[2016-11-17 06:23] LABS: BICARBONATE 28.2 MEQ/L (21.0-32.0)
[2016-11-17 08:00] VITALS: BP 102/62; PULSE 57; RESP 16; TEMP 97.8; O2SAT 96
--- NOTE | 2016-11-17 09:03 | PD.POD ---
Subjective Pain score: 6 Remarks toe is better, mild grown pain, not much better. Past Med/Surg/Social History Past Medical History Respiratory: REPORTS HX OF: COPD Cardiovascular: REPORTS HX OF: Atrial fibrillation, Coronary artery disease, Heart failure, Hyperlipidemia, Hypertension, Myocardial infarction Past Surgical History Gastrointestinal: REPORTS HX OF: Cholecystectomy, DENIES HX OF: Colectomy, total Gynecologic: DENIES HX OF: Hysterectomy Breast: DENIES HX OF: Mastectomy, bilateral (Mammogram 2014), Mastectomy, left , Mastectomy, right Social History Smoking Status: Former Smoker Objective Vital Signs Vital Signs Date Time Temp Pulse Resp B/P Pulse Ox O2 Delivery O2 Flow Rate FiO2 11/17/16 08:00 97.8 57 16 102/62 96 11/17/16 04:00 11/17/16 01:17 98.2 64 18 113/63 98 11/16/16 21:00 98.0 66 16 120/76 98 11/16/16 19:34 18 11/16/16 17:16 97.9 61 14 112/71 97 11/16/16 12:43 97.9 59 15 113/62 98 Coded Allergies: Cipro (Verified Allergy, Intermediate, Itching , 11/14/16) Exam-Podiatry Remarks Left foot with 2nd digit improved redness with plantar lateral eschar and plantar medial micro abscess has been relieved, red streaking remains along the medial calf and leg Assessment & Plan A/P Left 2nd digit micro abscess eschar with cellulitis. Continue IV ABX awaiting Sens of staph, no surgery planned at this point, no open wound, will continue to be available, MRI pending, Appreciate ID recs. Will sign off to Dr Tijerina. Juanjo Sweet DPM Nov 17, 2016 09:03
[2016-11-17] MEDS: ASPIRIN EC 81 MG TABEC PO SCH (09:07)
[2016-11-17] MEDS: LISINOPRIL 10 MG TAB PO SCH (09:07)
[2016-11-17] MEDS: metFORMIN HCL 500 MG TAB PO SCH ×2 (09:07→16:48)
[2016-11-17] MEDS: INVOKANA 100 MG PO SCH (09:07)
[2016-11-17] MEDS: CLARITHROMYCIN 500 MG TAB PO SCH ×2 (09:07→20:56)
[2016-11-17] MEDS: SPIRONOLACTONE 25 MG TAB PO SCH (09:07)
[2016-11-17] MEDS: APIXABAN 5 MG TABLET PO SCH ×2 (09:07→20:57)
[2016-11-17] MEDS: FUROSEMIDE 40 MG TAB PO SCH (09:07)
[2016-11-17] MEDS: CARVEDILOL 12.5 MG TAB PO SCH ×2 (09:07→20:57)
[2016-11-17] MEDS: SODIUM CHLORIDE 0.9% FLUSH 5 ML FLUSH FLUSH SCH ×2 (09:13→20:58)
--- NOTE | 2016-11-17 10:34 | HHI.IDPN ---
Subjective Subjective Remarks Notes reviewed No fever Areas of lymphangitis very tender to touch Antibiotics Vancomycin Cefepime Bactrim Biaxin Lines PIV Past Medical History Hypertension Hyperlipidemia Chronic atrial fibrillation Ischemic cardiomyopathy Coronary artery disease Diabetes History of sternal wound infection treated with debridement, wound VAC, and several weeks of IV antibiotics Chronic affective pulmonary disease Past Surgical History Coronary artery bypass surgery February 2016 Incision and debridement of wound infection Cholecystectomy Allergies: Coded Allergies: Cipro (Verified Allergy, Intermediate, Itching , 11/14/16) Objective . Vital Signs Date Time Temp Pulse Resp B/P Pulse Ox O2 Delivery O2 Flow Rate FiO2 11/17/16 08:00 97.8 57 16 102/62 96 11/17/16 04:00 11/17/16 01:17 98.2 64 18 113/63 98 11/16/16 21:00 98.0 66 16 120/76 98 11/16/16 19:34 18 11/16/16 17:16 97.9 61 14 112/71 97 11/16/16 12:43 97.9 59 15 113/62 98 11/16/16 11/16/16 11/17/16 15:00 23:00 07:00 Intake Total 1100 ml Balance 1100 ml Intake Oral 1100 ml # Voids 4 5 # Bowel Movements 4 . Laboratory Tests Test 11/17/16 05:35 White Blood Count 9.2 TH/MM3 Red Blood Count 4.11 MIL/MM3 Hemoglobin 12.5 GM/DL Hematocrit 36.8 % Mean Corpuscular Volume 89.6 FL Mean Corpuscular Hemoglobin 30.4 PG Mean Corpuscular Hemoglobin 34.0 % Concent Red Cell Distribution Width 13.2 % Platelet Count 223 TH/MM3 Mean Platelet Volume 8.9 FL Neutrophils (%) (Auto) 67.4 % Lymphocytes (%) (Auto) 24.5 % Monocytes (%) (Auto) 6.4 % Eosinophils (%) (Auto) 1.2 % Basophils (%) (Auto) 0.5 % Neutrophils # (Auto) 6.2 TH/MM3 Lymphocytes # (Auto) 2.3 TH/MM3 Monocytes # (Auto) 0.6 TH/MM3 Eosinophils # (Auto) 0.1 TH/MM3 Basophils # (Auto) 0.0 TH/MM3 CBC Comment DIFF FINAL Differential Comment Laboratory Tests Test 11/17/16 05:35 Sodium Level 143 MEQ/L Potassium Level 3.7 MEQ/L Chloride Level 106 MEQ/L Carbon Dioxide Level 28.2 MEQ/L Anion Gap 9 MEQ/L Blood Urea Nitrogen 15 MG/DL Creatinine 0.64 MG/DL Estimat Glomerular Filtration 96 ML/MIN Rate Random Glucose 60 MG/DL Calcium Level 9.0 MG/DL Microbiology Date/Time Procedure Status Source Growth 11/14/16 16:50 Aerobic Blood Culture - Preliminary Resulted Blood Peripheral NO GROWTH IN 2 DAYS 11/14/16 16:50 Anaerobic Blood Culture - Preliminary Resulted Blood Peripheral NO GROWTH IN 2 DAYS 11/14/16 16:50 Gram Stain - Final Resulted Wound Toe 11/14/16 16:50 Wound Culture - Preliminary Resulted Staphylococcus Species 11/14/16 16:55 Aerobic Blood Culture - Preliminary Resulted Blood Peripheral NO GROWTH IN 2 DAYS 11/14/16 16:55 Anaerobic Blood Culture - Preliminary Resulted Blood Peripheral NO GROWTH IN 2 DAYS 11/16/16 18:00 Gram Stain Received Wound Toe Pending 11/16/16 18:00 Wound Culture Received Wound Toe Pending 11/16/16 18:00 Acid Fast Stain Received Wound Toe Pending 11/16/16 18:00 Mycobacterial Culture Received Wound Toe Pending 11/16/16 18:00 Fungal Smear Received Wound Toe Pending 11/16/16 18:00 Fungal Culture Received Wound Toe Pending Imaging Foot X-Ray 11/15/16 0000 Signed Impressions: Service Date/Time: Tuesday, November 15, 2016 08:32 - CONCLUSION: 1. No acute bony abnormalities identified. Josef Mao MD Physical Exam GENERAL: awake and alert, in no apparent distress. SKIN: Cool and dry, no generalized rash HEAD: Atraumatic. Normocephalic. No temporal or scalp tenderness. EYES: [place] conjunctivae. No scleral icterus. No injection or drainage. ENT: Nose without bleeding, or purulent drainage. Moist oral mucosa. NECK: Trachea midline. No JVD or lymphadenopathy. Supple, nontender, no meningeal signs. CARDIOVASCULAR: Regular rate and rhythm without murmurs, gallops, or rubs. Healed sternotomy incision. RESPIRATORY: Clear to auscultation. Breath sounds equal bilaterally. No wheezes , rales, or rhonchi. GASTROINTESTINAL: Abdomen soft, non-tender, nondistended. Bowel sounds are present and normoactive. No hepato-splenomegaly, or palpable masses. No guarding. MUSCULOSKELETAL: RLE: unremarkable, without clubbing, cyanosis, or edema. No joint tenderness, effusion, or edema noted. No calf tenderness. LLE: Has red and swollen second toe, better. There is a black scab lateral to the pustule. She has nodular lymphangitis going up dorsum of her L foot, whole leg, and has several tender LN in her L groin. The intensity of redness is better, but nodules the same and very sensitive to touch. NEUROLOGICAL: Non-focal PSYCH: Normal affect, calm and cooperative LINE: PIV with no evidence of infection Assessment & Plan Remarks IMPRESSION Infection L 2nd toe, with nodular lymphangitis, etiology>? - ?usual pathogens, vs unusual pathogens like nocardia, atypical mycobacterial, fungal though not really getting any history for that Known DM CAD RECOMMENDATION Continue Vanco Continue Cefepime Continue Biaxin and Bactrim Follow C/S If not showing anything on C/S, will ask surgery to do excision biopsy of lesion in her leg or ankle Monitor progress Explained plan to patient D/W Svetlana Stallworth MD Nov 17, 2016 10:34
[2016-11-17 12:00] VITALS: BP 106/67; PULSE 63; RESP 16; TEMP 99.4; O2SAT 98
--- NOTE | 2016-11-17 13:33 | HHI.PR ---
Subjective Remarks afebrile ,no chills LLE skin lesion and second toe erythma still there but slightly improving Objective Vitals Vital Signs Date Time Temp Pulse Resp B/P Pulse Ox O2 Delivery O2 Flow Rate FiO2 11/17/16 12:00 99.4 63 16 106/67 98 11/17/16 08:00 97.8 57 16 102/62 96 11/17/16 04:00 11/17/16 01:17 98.2 64 18 113/63 98 11/16/16 21:00 98.0 66 16 120/76 98 11/16/16 19:34 18 11/16/16 17:16 97.9 61 14 112/71 97 I/O 11/16/16 11/16/16 11/16/16 11/17/16 11/17/16 11/17/16 07:00 15:00 23:00 07:00 15:00 23:00 Intake Total 1100 ml Balance 1100 ml Intake Oral 1100 ml # Voids 4 5 # Bowel Movements 4 Result Diagram: 11/17/16 0535 11/17/16 0535 Objective Remarks GENERAL: This is a well-nourished, well-developed patient, in no apparent distress. CARDIOVASCULAR: Regular rate and rhythm without murmurs, gallops, or rubs. RESPIRATORY: Clear to auscultation. Breath sounds equal bilaterally. No wheezes , rales, or rhonchi. GASTROINTESTINAL: Abdomen soft, non-tender, nondistended. Normal active bowel sounds MUSCULOSKELETAL: Extremities without clubbing, cyanosis, or edema.LEFT FOOT: Left foot second digit erythema is improving. There is eschar noted on the plantar surface of the lateral aspect. There does appear to be a pustule noted on the medial aspect of the plantar surface of the toe. streaking up the medial aspect of her left calf area and erythema noted into the left medial thigh NEURO: Alert & Oriented x4 to person, place, time, situation. 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 Continue vancomycin, discontinue Zosyn. Podiatry has been consulted as well as iv. Cultures showing staph species. X-ray was performed which did not indicate any acute abnormality. Patient does have elevated sedimentation rate and C-reactive protein. ID suspecting no cardia versus atypical mycobacterial started on Biaxin with Vanco and cefepime, she recommended surgical biopsy, Dr. Menendez graciously will discuss to the surgeon Hypertension, congestive heart failure, extremely cardiomyopathy, coronary artery disease: Continue home medications Diabetes: Accu-Cheks with sliding scale insulin. Patient is not required any insulin. Will discontinue Accu-Cheks, sliding scale insulin. Continue to control diabetes with diet and metformin Chronic obstructive point disease: Continue O2 supplementation maintain O2 sats greater than 92%. DuoNeb as needed DVT prevention patient is on Kirsty Blum MD Nov 17, 2016 13:33
[2016-11-17] MEDS ORDERED: GADODIAMIDE PF 287 MG/ML 20 ML VIAL (for RAD MRI) IV ONE (14:00)
[2016-11-17] MEDS: VANCOMYCIN INJ 1,250 MG in SODIUM CHLOR 0.9% 250 ML INJ 250 ML IV SCH (15:05)
[2016-11-17] MEDS: LACTOBACILLUS ACIDOPHILUS TAB PO SCH ×2 (15:05→20:58)
[2016-11-17 16:00] VITALS: BP 111/78; PULSE 70; RESP 16; TEMP 98.9; O2SAT 98
[2016-11-17] MEDS: ALPRAZolam 0.25 MG TAB PO PRN (16:48)
--- NOTE | 2016-11-17 18:07 | RADHPO ---
EXAM DATE/TIME: 11/17/2016 13:48 [facility] COMPARISON: No previous studies available for comparison. INDICATIONS : Osteomyelitis. Pain and infection. CONTRAST: 16 cc Omniscan (gadodiamide) IV MEDICAL HISTORY : Myocardial infarction. Congestive heart failure. Cardiovascular disease. Afib, high cholesterol, HTN, COPD SURGICAL HISTORY : Cholecystectomy. CABG ENCOUNTER: Initial ACUITY: 4-6 days PAIN SCORE: 9/10 LOCATION: 2nd toe on left foot going up the medial side of foot and lower leg. TECHNIQUE: Multiplanar, multisequence MRI examination was performed without contrast and after the intravenous a dministration of gadolinium. FINDINGS: BONE/CARTILAGE: Bone marrow signal is homogeneous. There are some mild degenerative type changes. MISCELLANEOUS: There is some nonspecific edema in the soft tissues surrounding the metatarsals. No loculated fluid c ollections are seen in the soft tissues. POST-CONTRAST: There are no abnormal areas of enhancement on the post-contrast images. CONCLUSION: There is nonspecific edema in the soft tissues in the region the metatarsals. This is suggestive of c ellulitis. No definite osteomyelitis is seen at this time. No focal loculated fluid collection to ind icate a soft tissue abscess is seen at this time. Gilbert Lundy MD on November 17, 2016 at 18:02 Board Certified Radiologist. This report was verified electronically.
[2016-11-17 20:00] VITALS: BP 137/76; PULSE 64; RESP 18; TEMP 96.7; O2SAT 98
[2016-11-17] MEDS: ATORVASTATIN 40 MG TAB PO SCH (20:56)
[2016-11-18] VITALS: BP 138/80; PULSE 68; RESP 18; TEMP 96.1; O2SAT 96
[2016-11-18] MEDS: VANCOMYCIN INJ 1,250 MG in SODIUM CHLOR 0.9% 250 ML INJ 250 ML IV SCH ×2 (00:10→12:09)
[2016-11-18] MEDS: SODIUM CHLORIDE 0.9% FLUSH 5 ML FLUSH FLUSH PRN ×3 (00:10→17:05)
[2016-11-18] MEDS: SULFAMETHOXAZOLE-TRIMETHOPRIM DS 800-160 MG TAB PO SCH ×3 (01:56→17:05)
[2016-11-18] MEDS: ACETAMINOPHEN/HYDROcodone 325 MG/7.5 MG TAB PO PRN ×5 (02:00→20:52)
[2016-11-18] MEDS: ALPRAZolam 0.25 MG TAB PO PRN ×3 (03:05→20:53)
[2016-11-18] MEDS: CEFEPIME INJ 2,000 MG in SODIUM CHLORIDE 0.9% INJ 100 ML IV SCH (04:59)
[2016-11-18] MEDS: glyBURIDE 2.5 MG TAB PO SCH ×2 (05:59→15:42)
--- NOTE | 2016-11-18 07:27 | PD.POD ---
Subjective Podiatric Problems Pt doing well, no signs of distress or acute issues Pain score: 6 Past Med/Surg/Social History Past Medical History Respiratory: REPORTS HX OF: COPD Cardiovascular: REPORTS HX OF: Atrial fibrillation, Coronary artery disease, Heart failure, Hyperlipidemia, Hypertension, Myocardial infarction Past Surgical History Gastrointestinal: REPORTS HX OF: Cholecystectomy, DENIES HX OF: Colectomy, total Gynecologic: DENIES HX OF: Hysterectomy Breast: DENIES HX OF: Mastectomy, bilateral (Mammogram 2014), Mastectomy, left , Mastectomy, right Social History Smoking Status: Former Smoker Objective Vital Signs Vital Signs Date Time Temp Pulse Resp B/P Pulse Ox O2 Delivery O2 Flow Rate FiO2 11/18/16 00:00 96.1 68 18 138/80 96 11/17/16 20:00 96.7 64 18 137/76 98 11/17/16 16:00 98.9 70 16 111/78 98 11/17/16 12:00 99.4 63 16 106/67 98 11/17/16 08:00 97.8 57 16 102/62 96 Coded Allergies: Cipro (Verified Allergy, Intermediate, Itching , 11/14/16) Other Results MRI shows edema and signs of cellulitis with no definitive osteo of mets or toes left foot and no fluid collection Physical Exam Remarks Neurovascularly intact, with deminished sensation Streaking to knee left leg, improved Mild left second toe edema and redness, improved No drainaghe, sbab distal toe with no appreciable depth Assessment & Plan A/P Left leg cellulitis and second toe edema, no bone infection -Plan to continued IV antibiotics -no surgery planned at this time -Possible oral antibiotics when D/C, will refer that to ID recommendations Gus Tijerina DPM Nov 18, 2016 07:27
[2016-11-18 08:00] VITALS: BP 114/68; PULSE 55; RESP 20; TEMP 97.6; O2SAT 97
[2016-11-18 09:24] VITALS: PULSE 62
[2016-11-18] MEDS: INVOKANA 100 MG PO SCH (09:27)
[2016-11-18] MEDS: SODIUM CHLORIDE 0.9% FLUSH 5 ML FLUSH FLUSH SCH ×2 (09:27→15:45)
[2016-11-18] MEDS: metFORMIN HCL 500 MG TAB PO SCH ×2 (09:28→17:05)
[2016-11-18] MEDS: CARVEDILOL 12.5 MG TAB PO SCH ×2 (09:28→20:52)
[2016-11-18] MEDS: LACTOBACILLUS ACIDOPHILUS TAB PO SCH ×2 (09:28→20:52)
[2016-11-18] MEDS: ASPIRIN EC 81 MG TABEC PO SCH (09:28)
[2016-11-18] MEDS: APIXABAN 5 MG TABLET PO SCH ×2 (09:28→20:52)
[2016-11-18] MEDS: FUROSEMIDE 40 MG TAB PO SCH (09:29)
[2016-11-18] MEDS: CLARITHROMYCIN 500 MG TAB PO SCH ×2 (09:29→20:51)
[2016-11-18] MEDS: SPIRONOLACTONE 25 MG TAB PO SCH (09:29)
[2016-11-18] MEDS: LISINOPRIL 10 MG TAB PO SCH (09:32)
[2016-11-18 12:00] VITALS: BP 120/71; PULSE 109; RESP 20; TEMP 97.2; O2SAT 99
--- NOTE | 2016-11-18 12:35 | HHI.PR ---
Subjective Remarks Follow-up on patient with left foot second digit cellulitis ascending into the calf. Patient reports improvement in swelling and redness today. She is afebrile. No other acute medical complaints at this time. Objective Vitals Vital Signs Date Time Temp Pulse Resp B/P Pulse Ox O2 Delivery O2 Flow Rate FiO2 11/18/16 12:00 97.2 109 20 120/71 99 11/18/16 09:24 62 11/18/16 08:00 97.6 55 20 114/68 97 11/18/16 07:00 18 11/18/16 00:00 96.1 68 18 138/80 96 11/17/16 20:00 96.7 64 18 137/76 98 11/17/16 16:00 98.9 70 16 111/78 98 I/O 11/17/16 11/17/16 11/17/16 11/18/16 11/18/16 11/18/16 07:00 15:00 23:00 07:00 15:00 23:00 Intake Total 630 ml 411 ml 680 ml Balance 630 ml 411 ml 680 ml Intake Oral 630 ml 240 ml IV Total 411 ml 440 ml # Voids 5 3 2 # Bowel Movements 4 1 1 Result Diagram: 11/17/16 0535 11/17/16 0535 Imaging Last 48 hours Impressions Foot MRI 11/17/16 0000 Signed Impressions: Service Date/Time: Thursday, November 17, 2016 13:48 - CONCLUSION: There is nonspecific edema in the soft tissues in the region the metatarsals. This is suggestive of cellulitis. No definite osteomyelitis is seen at this time. No focal loculated fluid collection to indicate a soft tissue abscess is seen at this time. Gilbert Lundy MD Objective Remarks GENERAL: Well-nourished, well-developed patient in NAD. A&Ox3. SKIN: Warm and dry. HEAD: Normocephalic. Atraumatic. EYES: EOMI. CARDIOVASCULAR: Regular rate and rhythm. S1, S2 noted. No murmur appreciated. RESPIRATORY: No accessory muscle use. Clear to auscultation. Breath sounds equal bilaterally. GASTROINTESTINAL: Abdomen soft, non-tender, nondistended. Normoactive bowel sounds x4. MUSCULOSKELETAL: Extremities without clubbing, cyanosis, or edema. EXTREMITIES: Decreased size of lymphadenopathy left groin. Nodular lesions on the left leg appear less indurated and less erythematous. Left second toe less engorged and less erythema. Increased range of motion left second toe with better flexion and extension. NEUROLOGICAL: Awake and alert. No obvious cranial nerve deficits. Motor grossly within normal limits. 5/5 muscle strength in bilateral upper and lower extremities. Diminished sensation left lower extremity distally. Normal speech. PSYCHIATRIC: Appropriate mood and affect; insight and judgment normal. Medications and IVs Last 48 hours Impressions Foot MRI 11/17/16 0000 Signed Impressions: Service Date/Time: Thursday, November 17, 2016 13:48 - CONCLUSION: There is nonspecific edema in the soft tissues in the region the metatarsals. This is suggestive of cellulitis. No definite osteomyelitis is seen at this time. No focal loculated fluid collection to indicate a soft tissue abscess is seen at this time. Gilbert Lundy MD A/P Problem List: (1) Lymphangitis ICD Code: I89.1 Status: Acute (2) Cellulitis of toe of left foot ICD Code: L03.032 Status: Acute Assessment and Plan Left foot second digit cellulitis ascending the calf: Improving , Patient does have history of MRSA infection as well as diabetic. Podiatry has been consulted as well as ID. X-ray was performed which did not indicate any acute abnormality. MRI negative for osteomyelitis which shows nonspecific edema in the soft tissues around the metatarsals suggestive of cellulitis. Patient does have elevated sedimentation rate and C-reactive protein. Podiatry does not plan for any surgery at this time and has deferred antibiotic therapy to IDs recommendations. C/S with beaded GPR, sent out for further identification. ID suspecting nocardia vs atypical mycobacterial. Vanc and Cefepime discontinued. Continue with Biaxin and Bactrim and Rocephin added. Hypertension, congestive heart failure, extreme cardiomyopathy, coronary artery disease: Continue home medications. Blood pressure well controlled. No evidence of fluid overload on exam. Diabetes: Accu-Cheks with sliding scale insulin. Patient has not required any insulin. Accu-Cheks, sliding scale insulin discontinued. Continue to control diabetes with diet and Metformin, Glyburide and Invokana. Chronic obstructive pulmonary disease: Continue O2 supplementation maintain O2 sats greater than 92%. DuoNeb as needed. DVT prevention patient is on Eliquis Written by Luana Marquez, acting as scribe for Dr. Thompson on 11/18/16 at 12:08. Discharge Planning Once cleared by infectious disease Luana Marquez Nov 18, 2016 12:35 Kirsty Thompson MD Nov 19, 2016 11:22
--- NOTE | 2016-11-18 13:21 | HHI.IDPN ---
Subjective Subjective Remarks Notes reviewed No fever Areas of lymphangitis very tender to touch Feels better especially her L groin First C/S now with beaded GPR, Possible nocardia - being sent out Second C/S negative so far Fungal stain negative AFB stain not done yet Antibiotics Vancomycin Cefepime Bactrim Biaxin Lines PIV Past Medical History Hypertension Hyperlipidemia Chronic atrial fibrillation Ischemic cardiomyopathy Coronary artery disease Diabetes History of sternal wound infection treated with debridement, wound VAC, and several weeks of IV antibiotics Chronic affective pulmonary disease Past Surgical History Coronary artery bypass surgery February 2016 Incision and debridement of wound infection Cholecystectomy Allergies: Coded Allergies: No Known Allergies (Unverified , 11/18/16) Objective . Vital Signs Date Time Temp Pulse Resp B/P Pulse Ox O2 Delivery O2 Flow Rate FiO2 11/18/16 12:00 97.2 109 20 120/71 99 11/18/16 09:24 62 11/18/16 08:00 97.6 55 20 114/68 97 11/18/16 07:00 18 11/18/16 00:00 96.1 68 18 138/80 96 11/17/16 20:00 96.7 64 18 137/76 98 11/17/16 16:00 98.9 70 16 111/78 98 11/17/16 11/17/16 11/18/16 15:00 23:00 07:00 Intake Total 630 ml 411 ml 680 ml Balance 630 ml 411 ml 680 ml Intake Oral 630 ml 240 ml IV Total 411 ml 440 ml # Voids 3 2 # Bowel Movements 1 1 . Laboratory Tests Test 11/17/16 05:35 White Blood Count 9.2 TH/MM3 Red Blood Count 4.11 MIL/MM3 Hemoglobin 12.5 GM/DL Hematocrit 36.8 % Mean Corpuscular Volume 89.6 FL Mean Corpuscular Hemoglobin 30.4 PG Mean Corpuscular Hemoglobin 34.0 % Concent Red Cell Distribution Width 13.2 % Platelet Count 223 TH/MM3 Mean Platelet Volume 8.9 FL Neutrophils (%) (Auto) 67.4 % Lymphocytes (%) (Auto) 24.5 % Monocytes (%) (Auto) 6.4 % Eosinophils (%) (Auto) 1.2 % Basophils (%) (Auto) 0.5 % Neutrophils # (Auto) 6.2 TH/MM3 Lymphocytes # (Auto) 2.3 TH/MM3 Monocytes # (Auto) 0.6 TH/MM3 Eosinophils # (Auto) 0.1 TH/MM3 Basophils # (Auto) 0.0 TH/MM3 CBC Comment DIFF FINAL Differential Comment Laboratory Tests Test 11/17/16 05:35 Sodium Level 143 MEQ/L Potassium Level 3.7 MEQ/L Chloride Level 106 MEQ/L Carbon Dioxide Level 28.2 MEQ/L Anion Gap 9 MEQ/L Blood Urea Nitrogen 15 MG/DL Creatinine 0.64 MG/DL Estimat Glomerular Filtration 96 ML/MIN Rate Random Glucose 60 MG/DL Calcium Level 9.0 MG/DL Microbiology Date/Time Procedure Status Source Growth 11/16/16 18:00 Gram Stain - Final Resulted Wound Toe 11/16/16 18:00 Wound Culture - Preliminary Resulted Wound Toe NO GROWTH IN 48 HOURS. 11/16/16 18:00 Acid Fast Stain - Final Resulted Wound Toe NO ACID FAST BACILLI SEEN 11/16/16 18:00 Mycobacterial Culture Resulted Wound Toe Pending 11/16/16 18:00 Fungal Smear - Final Resulted Wound Toe NO FUNGAL ELEMENTS SEEN. 11/16/16 18:00 Fungal Culture Resulted Wound Toe Pending Imaging Foot X-Ray 11/15/16 0000 Signed Impressions: Service Date/Time: Tuesday, November 15, 2016 08:32 - CONCLUSION: 1. No acute bony abnormalities identified. Josef Mao MD Physical Exam GENERAL: awake and alert, in no apparent distress. SKIN: Cool and dry, no generalized rash HEAD: Atraumatic. Normocephalic. No temporal or scalp tenderness. EYES: [place] conjunctivae. No scleral icterus. No injection or drainage. ENT: Nose without bleeding, or purulent drainage. Moist oral mucosa. NECK: Trachea midline. No JVD or lymphadenopathy. Supple, nontender, no meningeal signs. CARDIOVASCULAR: Regular rate and rhythm without murmurs, gallops, or rubs. Healed sternotomy incision. RESPIRATORY: Clear to auscultation. Breath sounds equal bilaterally. No wheezes , rales, or rhonchi. GASTROINTESTINAL: Abdomen soft, non-tender, nondistended. Bowel sounds are present and normoactive. No hepato-splenomegaly, or palpable masses. No guarding. MUSCULOSKELETAL: RLE: unremarkable, without clubbing, cyanosis, or edema. No joint tenderness, effusion, or edema noted. No calf tenderness. LLE: Has red and swollen second toe, better. There is a black scab lateral to the pustule. She has nodular lymphangitis going up dorsum of her L foot, whole leg, and has several tender LN in her L groin. The LN in groin are smaller. The intensity of redness in her leg is better. There is a nodule in upper leg and another one in ankle, very tender to touch. The redness of her second toe is better; scab is same. NEUROLOGICAL: Non-focal PSYCH: Normal affect, calm and cooperative LINE: PIV with no evidence of infection Assessment & Plan Remarks IMPRESSION Infection L 2nd toe, with nodular lymphangitis, etiology>? - ?usual pathogens, vs unusual pathogens like nocardia, atypical mycobacterial, fungal though not really getting any history for that - C/S MSSA and possible NOcardia Known DM CAD RECOMMENDATION Stop Vanco Stop Cefepime Continue Biaxin and Bactrim Add Rocephin Follow C/S Monitor progress Dr Worthy will take over case tomorrow She can follow-up with patient as outpatient Explained to patient Explained plan to patient D/W Svetlana Stallworth MD Nov 18, 2016 13:21
[2016-11-18] MEDS: cefTRIAXone INJ 2,000 MG in SODIUM CHLORIDE 0.9% INJ 100 ML IV SCH (15:44)
[2016-11-18 16:00] VITALS: BP 106/70; PULSE 59; RESP 20; TEMP 97.2; O2SAT 99
[2016-11-18 20:00] VITALS: BP 116/72; PULSE 67; RESP 18; TEMP 97; O2SAT 99
[2016-11-18] MEDS: ATORVASTATIN 40 MG TAB PO SCH (20:52)
[2016-11-19] VITALS (7 sets, daily range): BP systolic 93–110; BP diastolic 59–67; PULSE 60–69; RESP 18–20; TEMP 97.8–98.9; O2SAT 96–99
[2016-11-19] MEDS: SULFAMETHOXAZOLE-TRIMETHOPRIM DS 800-160 MG TAB PO SCH ×3 (01:25→18:05)
[2016-11-19] MEDS: ACETAMINOPHEN/HYDROcodone 325 MG/7.5 MG TAB PO PRN ×4 (06:14→20:16)
[2016-11-19] MEDS: glyBURIDE 2.5 MG TAB PO SCH ×2 (06:14→15:45)
[2016-11-19] MEDS: ALPRAZolam 0.25 MG TAB PO PRN ×3 (06:18→22:44)
--- NOTE | 2016-11-19 08:14 | HHI.IDPN ---
Subjective Subjective Remarks Left leg better- still gets red and painful on standing. Left second toe better. Nodular areas in calf still painful Groin less swollen/ tender Notes reviewed No fever Antibiotics Ceftriaxone Bactrim Biaxin Lines PIV Past Medical History Hypertension Hyperlipidemia Chronic atrial fibrillation Ischemic cardiomyopathy Coronary artery disease Diabetes History of sternal wound infection treated with debridement, wound VAC, and several weeks of IV antibiotics Chronic affective pulmonary disease Past Surgical History Coronary artery bypass surgery February 2016 Incision and debridement of wound infection Cholecystectomy Allergies: Coded Allergies: No Known Allergies (Unverified , 11/18/16) Objective . Vital Signs Date Time Temp Pulse Resp B/P Pulse Ox O2 Delivery O2 Flow Rate FiO2 11/19/16 07:14 18 11/19/16 04:00 98.0 60 20 100/60 97 11/19/16 00:00 97.8 62 19 99/67 99 11/18/16 20:00 97.0 67 18 116/72 99 11/18/16 16:00 97.2 59 20 106/70 99 11/18/16 12:00 97.2 109 20 120/71 99 11/18/16 09:24 62 11/18/16 11/18/16 11/19/16 15:00 23:00 07:00 Intake Total 690 ml 0 ml 0 ml Balance 690 ml 0 ml 0 ml Intake Oral 690 ml IV Total 0 ml 0 ml # Voids 2 2 . Microbiology Date/Time Procedure Status Source Growth 11/16/16 18:00 Gram Stain - Final Resulted Wound Toe 11/16/16 18:00 Wound Culture - Preliminary Resulted Wound Toe NO GROWTH IN 48 HOURS. 11/16/16 18:00 Acid Fast Stain - Final Resulted Wound Toe NO ACID FAST BACILLI SEEN 11/16/16 18:00 Mycobacterial Culture Resulted Wound Toe Pending 11/16/16 18:00 Fungal Smear - Final Resulted Wound Toe NO FUNGAL ELEMENTS SEEN. 11/16/16 18:00 Fungal Culture Resulted Wound Toe Pending Imaging Foot X-Ray 11/15/16 0000 Signed Impressions: Service Date/Time: Tuesday, November 15, 2016 08:32 - CONCLUSION: 1. No acute bony abnormalities identified. Josef Mao MD Physical Exam GENERAL: awake and alert, in no apparent distress. SKIN: Cool and dry, no generalized rash HEAD: Atraumatic. Normocephalic. No temporal or scalp tenderness. EYES: [place] conjunctivae. No scleral icterus. No injection or drainage. ENT: Nose without bleeding, or purulent drainage. Moist oral mucosa. NECK: Trachea midline. No JVD or lymphadenopathy. Supple, nontender, no meningeal signs. CARDIOVASCULAR: Regular rate and rhythm without murmurs, gallops, or rubs. Healed sternotomy incision. RESPIRATORY: Clear to auscultation. Breath sounds equal bilaterally. No wheezes , rales, or rhonchi. GASTROINTESTINAL: Abdomen soft, non-tender, nondistended. Bowel sounds are present and normoactive. No hepato-splenomegaly, or palpable masses. No guarding. MUSCULOSKELETAL: RLE: unremarkable, without clubbing, cyanosis, or edema. No joint tenderness, effusion, or edema noted. No calf tenderness. LLE: Has red and swollen second toe with improvement. . She has nodular lymphangitis going up dorsum of her L foot, whole leg, and has several tender LN in her L groin. The LN in groin are smaller. The intensity of redness in her leg is better. There is a nodule in upper leg and another one in ankle, somewhat tender to touch. The redness of her second toe is better;. NEUROLOGICAL: Non-focal PSYCH: Normal affect, calm and cooperative LINE: PIV with no evidence of infection Assessment & Plan Diagnosis: (1) Cellulitis of toe of left foot (2) Lymphangitis Remarks Reviewed cultures- MSSA, GPR- ? Nocardia Continue IV Ceftriaxone Continue Bactrim Stop Biaxin If continues to improve - should be able to change to PO antibiotics in next 24 - 48hrs ( Augmentin and Bactrim) Teodora Worthy MD Nov 19, 2016 08:14
[2016-11-19] MEDS: CARVEDILOL 12.5 MG TAB PO SCH ×2 (08:59→20:14)
[2016-11-19] MEDS: LISINOPRIL 10 MG TAB PO SCH (08:59)
[2016-11-19] MEDS: APIXABAN 5 MG TABLET PO SCH ×2 (08:59→20:14)
[2016-11-19] MEDS: FUROSEMIDE 40 MG TAB PO SCH (08:59)
[2016-11-19] MEDS: INVOKANA 100 MG PO SCH (09:00)
[2016-11-19] MEDS: ASPIRIN EC 81 MG TABEC PO SCH (09:00)
[2016-11-19] MEDS: metFORMIN HCL 500 MG TAB PO SCH ×2 (09:00→18:05)
[2016-11-19] MEDS: SPIRONOLACTONE 25 MG TAB PO SCH (09:00)
[2016-11-19] MEDS: SODIUM CHLORIDE 0.9% FLUSH 5 ML FLUSH FLUSH SCH ×2 (09:01→20:14)
[2016-11-19] MEDS: CLARITHROMYCIN 500 MG TAB PO SCH ×2 (09:01→20:13)
[2016-11-19] MEDS: LACTOBACILLUS ACIDOPHILUS TAB PO SCH ×2 (09:10→20:13)
--- NOTE | 2016-11-19 12:15 | HHI.PR ---
Subjective Remarks Follow up on left lower second toe cellulitis with ascending lesion possible Nocardia versus atypical bacterium ID consulted patient on antibiotic continue to improve No fever or chills Objective Vitals Vital Signs Date Time Temp Pulse Resp B/P Pulse Ox O2 Delivery O2 Flow Rate FiO2 11/19/16 08:00 98.1 60 20 104/64 97 11/19/16 07:14 18 11/19/16 04:00 98.0 60 20 100/60 97 11/19/16 00:00 97.8 62 19 99/67 99 11/18/16 20:00 97.0 67 18 116/72 99 11/18/16 16:00 97.2 59 20 106/70 99 I/O 11/18/16 11/18/16 11/18/16 11/19/16 11/19/16 11/19/16 07:00 15:00 23:00 07:00 15:00 23:00 Intake Total 680 ml 690 ml 0 ml 0 ml 240 ml Balance 680 ml 690 ml 0 ml 0 ml 240 ml Intake Oral 240 ml 690 ml 240 ml IV Total 440 ml 0 ml 0 ml # Voids 2 2 2 # Bowel Movements 1 Result Diagram: 11/17/16 0535 11/17/1635 Objective Remarks GENERAL: Well-nourished, well-developed patient in NAD. A&Ox3. SKIN: Warm and dry. HEAD: Normocephalic. Atraumatic. EYES: EOMI. CARDIOVASCULAR: Regular rate and rhythm. S1, S2 noted. No murmur appreciated. RESPIRATORY: No accessory muscle use. Clear to auscultation. Breath sounds equal bilaterally. GASTROINTESTINAL: Abdomen soft, non-tender, nondistended. Normoactive bowel sounds x4. MUSCULOSKELETAL: Extremities without clubbing, cyanosis, or edema. EXTREMITIES: Decreased size of lymphadenopathy left groin. Nodular lesions on the left leg appear less indurated and less erythematous. Left second toe less engorged and less erythema. Increased range of motion left second toe with better flexion and extension. NEUROLOGICAL: Awake and alert. No obvious cranial nerve deficits. Motor grossly within normal limits. 5/5 muscle strength in bilateral upper and lower extremities. . Normal speech. PSYCHIATRIC: Appropriate mood and affect; insight and judgment normal. A/P Problem List: (1) Lymphangitis ICD Code: I89.1 Status: Acute (2) Cellulitis of toe of left foot ICD Code: L03.032 Status: Acute Assessment and Plan Left foot second digit cellulitis ascending the calf: Improving , Patient does have history of MRSA infection as well as diabetic. Podiatry has been consulted as well as ID. X-ray was performed which did not indicate any acute abnormality. MRI negative for osteomyelitis which shows nonspecific edema in the soft tissues around the metatarsals suggestive of cellulitis. Patient does have elevated sedimentation rate and C-reactive protein. Podiatry does not plan for any surgery at this time and has deferred antibiotic therapy to IDs recommendations. C/S with beaded GPR, sent out for further identification. ID suspecting nocardia vs atypical mycobacterial. Vanc and Cefepime discontinued. Biaxin and Bactrim and Rocephin added. Personally Reviewed cultures- MSSA, GPR- ? Nocardia Dr. Deacon NOBLE who recommended on 11/19 Continue IV Ceftriaxone Continue Bactrim Stop Biaxin If continues to improve - should be able to change to PO antibiotics in next 24 - 48hrs ( Augmentin and Bactrim) Hypertension, congestive heart failure, extremely cardiomyopathy, coronary artery disease: Continue home medications Diabetes: Accu-Cheks with sliding scale insulin. Patient is not required any insulin. Will discontinue Accu-Cheks, sliding scale insulin. Continue to control diabetes with diet and metformin Chronic obstructive point disease: Continue O2 supplementation maintain O2 sats greater than 92%. DuoNeb as needed DVT prevention patient is on Kirsty Blum MD Nov 19, 2016 12:15
[2016-11-19] MEDS: cefTRIAXone INJ 2,000 MG in SODIUM CHLORIDE 0.9% INJ 100 ML IV SCH (14:11)
[2016-11-19] MEDS: SODIUM CHLORIDE 0.9% FLUSH 5 ML FLUSH FLUSH PRN (14:11)
[2016-11-19] MEDS: ATORVASTATIN 40 MG TAB PO SCH (20:13)
[2016-11-20] VITALS: BP 113/61; PULSE 65; RESP 20; TEMP 98.3; O2SAT 98
[2016-11-20] MEDS: SULFAMETHOXAZOLE-TRIMETHOPRIM DS 800-160 MG TAB PO SCH ×3 (02:22→17:09)
[2016-11-20] MEDS: ACETAMINOPHEN/HYDROcodone 325 MG/7.5 MG TAB PO PRN ×4 (02:22→18:23)
--- NOTE | 2016-11-20 05:57 | HHI.IDPN ---
Subjective Subjective Remarks ID fu Dr Worthy Left leg better- still gets red and painful on standing. Left second toe better. Nodular areas in calf still painful only at the proximal aspect , nodular lesions are less Groin less swollen/ tender Notes reviewed No fever Wants to go home and doesnt want to do IV Antibiotics Ceftriaxone Bactrim Biaxin Lines PIV Past Medical History Hypertension Hyperlipidemia Chronic atrial fibrillation Ischemic cardiomyopathy Coronary artery disease Diabetes History of sternal wound infection treated with debridement, wound VAC, and several weeks of IV antibiotics Chronic affective pulmonary disease Past Surgical History Coronary artery bypass surgery February 2016 Incision and debridement of wound infection Cholecystectomy Allergies: Coded Allergies: No Known Allergies (Unverified , 11/18/16) Objective . Vital Signs Date Time Temp Pulse Resp B/P Pulse Ox O2 Delivery O2 Flow Rate FiO2 11/20/16 00:00 98.3 65 20 113/61 98 11/19/16 20:00 98.9 69 20 105/59 96 11/19/16 18:00 65 18 110/66 11/19/16 16:44 18 11/19/16 16:00 98.5 63 20 99/63 99 11/19/16 12:00 98.9 61 20 93/61 98 11/19/16 08:00 98.1 60 20 104/64 97 11/19/16 11/19/16 11/20/16 15:00 23:00 07:00 Intake Total 1140 ml 480 ml Balance 1140 ml 480 ml Intake Oral 1140 ml 480 ml # Voids 4 2 # Bowel Movements 0 2 Imaging Foot X-Ray 11/15/16 0000 Signed Impressions: Service Date/Time: Tuesday, November 15, 2016 08:32 - CONCLUSION: 1. No acute bony abnormalities identified. Josef Mao MD Physical Exam GENERAL: awake and alert, in no apparent distress. SKIN: Cool and dry, no generalized rash HEAD: Atraumatic. Normocephalic. No temporal or scalp tenderness. EYES: [place] conjunctivae. No scleral icterus. No injection or drainage. ENT: Nose without bleeding, or purulent drainage. Moist oral mucosa. NECK: Trachea midline. No JVD or lymphadenopathy. Supple, nontender, no meningeal signs. CARDIOVASCULAR: Regular rate and rhythm without murmurs, gallops, or rubs. Healed sternotomy incision. RESPIRATORY: Clear to auscultation. Breath sounds equal bilaterally. No wheezes , rales, or rhonchi. GASTROINTESTINAL: Abdomen soft, non-tender, nondistended. Bowel sounds are present and normoactive. No hepato-splenomegaly, or palpable masses. No guarding. MUSCULOSKELETAL: RLE: unremarkable, without clubbing, cyanosis, or edema. No joint tenderness, effusion, or edema noted. No calf tenderness. LLE: Has red and swollen second toe with improvement. . She has nodular lymphangitis going up dorsum of her L foot, whole leg, and has several tender LN in her L groin. The LN in groin are smaller. She is tender in the upper calf region. The intensity of redness in her leg is better. The redness of her second toe is better its dry and peeling. NEUROLOGICAL: Non-focal PSYCH: Normal affect, calm and cooperative LINE: PIV with no evidence of infection Assessment & Plan Remarks Reviewed cultures- MSSA, GPR- ? Nocardia Continue IV Ceftriaxone Continue Bactrim If continues to improve - should be able to change to PO antibiotics in next 24 - 48hrs ( Augmentin and Bactrim) x 2 weeks w/ FU in our office Genesis Abreu Nov 20, 2016 05:57
[2016-11-20] MEDS: glyBURIDE 2.5 MG TAB PO SCH ×2 (06:54→17:09)
[2016-11-20] MEDS: FUROSEMIDE 40 MG TAB PO SCH (08:50)
[2016-11-20] MEDS: metFORMIN HCL 500 MG TAB PO SCH ×2 (08:50→17:09)
[2016-11-20] MEDS: LISINOPRIL 10 MG TAB PO SCH (08:51)
[2016-11-20] MEDS: ASPIRIN EC 81 MG TABEC PO SCH (08:51)
[2016-11-20] MEDS: SPIRONOLACTONE 25 MG TAB PO SCH (08:51)
[2016-11-20] MEDS: CLARITHROMYCIN 500 MG TAB PO SCH ×2 (08:51→20:45)
[2016-11-20] MEDS: APIXABAN 5 MG TABLET PO SCH ×2 (08:51→20:45)
[2016-11-20] MEDS: CARVEDILOL 12.5 MG TAB PO SCH ×2 (08:51→21:00)
[2016-11-20] MEDS: LACTOBACILLUS ACIDOPHILUS TAB PO SCH ×2 (08:51→20:45)
[2016-11-20] MEDS: INVOKANA 100 MG PO SCH (08:52)
[2016-11-20] MEDS: SODIUM CHLORIDE 0.9% FLUSH 5 ML FLUSH FLUSH SCH ×2 (08:52→21:00)
[2016-11-20 10:00] VITALS: BP 106/57; PULSE 61; RESP 20; TEMP 98.4; O2SAT 94
[2016-11-20 12:00] VITALS: BP 93/49; PULSE 67; RESP 19; TEMP 97.6; O2SAT 96
[2016-11-20] MEDS: cefTRIAXone INJ 2,000 MG in SODIUM CHLORIDE 0.9% INJ 100 ML IV SCH (13:45)
[2016-11-20] MEDS: ALPRAZolam 0.25 MG TAB PO PRN ×2 (13:45→23:50)
[2016-11-20 16:00] VITALS: BP 94/61; PULSE 65; RESP 20; TEMP 97.3; O2SAT 97
--- NOTE | 2016-11-20 17:56 | PD.POD ---
Subjective Podiatric Problems Pt doing well, no signs of distress or acute issues Pain score: 6 Past Med/Surg/Social History Past Medical History Respiratory: REPORTS HX OF: COPD Cardiovascular: REPORTS HX OF: Atrial fibrillation, Coronary artery disease, Heart failure, Hyperlipidemia, Hypertension, Myocardial infarction Past Surgical History Gastrointestinal: REPORTS HX OF: Cholecystectomy, DENIES HX OF: Colectomy, total Gynecologic: DENIES HX OF: Hysterectomy Breast: DENIES HX OF: Mastectomy, bilateral (Mammogram 2014), Mastectomy, left , Mastectomy, right Social History Smoking Status: Former Smoker Objective Vital Signs Vital Signs Date Time Temp Pulse Resp B/P Pulse Ox O2 Delivery O2 Flow Rate FiO2 11/20/16 10:00 98.4 61 20 106/57 94 11/20/16 00:00 98.3 65 20 113/61 98 11/19/16 20:00 98.9 69 20 105/59 96 11/19/16 18:00 65 18 110/66 Coded Allergies: No Known Allergies (Unverified , 11/18/16) Physical Exam Remarks LEft leg edema andcellulitis vastly improved No open drrainage, left second toe scab with no sign of deep infection Can move ankle up and down Assessment & Plan A/P Left leg cellulitis and second toe edema, no bone infection -Plan to continued IV antibiotics and begin switch to oral -no surgery planned at this time -Ok to DC per podiatry Gus Tijerina DPM Nov 20, 2016 17:56
--- NOTE | 2016-11-20 18:32 | HHI.PR ---
Subjective Remarks Follow-up cellulitis, lymphangitis. Recent states that it is improving. Hopes to be able to go home soon. Denies chest pain or dyspnea. Did have one episode of vomiting this morning. Objective Vitals Vital Signs Date Time Temp Pulse Resp B/P Pulse Ox O2 Delivery O2 Flow Rate FiO2 11/20/16 12:00 97.6 67 19 93/49 96 11/20/16 10:00 98.4 61 20 106/57 94 11/20/16 00:00 98.3 65 20 113/61 98 11/19/16 20:00 98.9 69 20 105/59 96 I/O 11/19/16 11/19/16 11/19/16 11/20/16 11/20/16 11/20/16 07:00 15:00 23:00 07:00 15:00 23:00 Intake Total 0 ml 1140 ml 480 ml 480 ml Balance 0 ml 1140 ml 480 ml 480 ml Intake Oral 1140 ml 480 ml 480 ml IV Total 0 ml # Voids 4 2 2 # Bowel Movements 0 2 1 Result Diagram: 11/17/16 0535 11/17/16 0535 Imaging Last Impressions Foot MRI 11/17/16 0000 Signed Impressions: Service Date/Time: Thursday, November 17, 2016 13:48 - CONCLUSION: There is nonspecific edema in the soft tissues in the region the metatarsals. This is suggestive of cellulitis. No definite osteomyelitis is seen at this time. No focal loculated fluid collection to indicate a soft tissue abscess is seen at this time. Gilbert Lundy MD Foot X-Ray 11/15/16 0000 Signed Impressions: Service Date/Time: Tuesday, November 15, 2016 08:32 - CONCLUSION: 1. No acute bony abnormalities identified. Josef Mao MD Objective Remarks General: No acute distress. Heart: Regular rate and rhythm. No murmur. Lungs: Clear to auscultation bilaterally. No wheezes, rales, or rhonchi. Breathing is nonlabored. Abdomen: Soft, nontender, nondistended. Erythema extending from the left second toe in a linear fashion to the knee. There is a scab overlying the distal left second toe. Extremities: No lower extremity edema. Psych: Alert and oriented. Procedures None Urinary Catheter: No Vascular Central Line Catheter: No A/P Problem List: (1) Lymphangitis ICD Code: I89.1 Status: Acute (2) Cellulitis of toe of left foot ICD Code: L03.032 Status: Acute Assessment and Plan 1. Left foot second digit cellulitis, lymphangitis: Appreciate podiatry and infectious disease recommendations. Continue antibiotics. Cleared for discharge by podiatry. Possible switch to oral antibiotics tomorrow per infectious disease. 2. Hypertension: Stable. Continue home meds. 3. Coronary artery disease: Asymptomatic. Continue home meds. 4. Diabetes mellitus: Glucose stable. Accu-Cheks discontinued. Continue diabetic diet, metformin. 5. COPD: Continue supplemental oxygen as needed. DuoNeb as needed. 6. DVT prophylaxis: Eliquis. Discharge Planning Possible discharge home tomorrow if cleared by infectious disease. Darrius Robles MD Nov 20, 2016 18:32
[2016-11-20 20:00] VITALS: BP 148/87; PULSE 61; RESP 20; TEMP 98.7; O2SAT 97
[2016-11-20] MEDS: ATORVASTATIN 40 MG TAB PO SCH (20:53)
[2016-11-20] MEDS: ACETAMINOPHEN/HYDROcodone 325 MG/5 MG TAB PO PRN (23:49)
[2016-11-20] MEDS: ONDANSETRON HCL 4 MG/2 ML VIAL IVP PRN (23:50)
[2016-11-21] VITALS: BP 89/59; PULSE 68; RESP 20; TEMP 98.5; O2SAT 98
[2016-11-21 04:00] VITALS: BP 93/57; PULSE 60; RESP 20; TEMP 96.5; O2SAT 98
[2016-11-21] MEDS: glyBURIDE 2.5 MG TAB PO SCH (06:32)
[2016-11-21] MEDS: SULFAMETHOXAZOLE-TRIMETHOPRIM DS 800-160 MG TAB PO SCH ×2 (06:32→09:18)
--- NOTE | 2016-11-21 07:49 | HHI.IDPN ---
Subjective Subjective Remarks ID fu Dr Worthy Left leg better- Wants to go home and doesnt want to do IV Antibiotics Ceftriaxone Bactrim Biaxin Lines PIV Past Medical History Hypertension Hyperlipidemia Chronic atrial fibrillation Ischemic cardiomyopathy Coronary artery disease Diabetes History of sternal wound infection treated with debridement, wound VAC, and several weeks of IV antibiotics Chronic affective pulmonary disease Past Surgical History Coronary artery bypass surgery February 2016 Incision and debridement of wound infection Cholecystectomy Allergies: Coded Allergies: No Known Allergies (Unverified , 11/18/16) Objective . Vital Signs Date Time Temp Pulse Resp B/P Pulse Ox O2 Delivery O2 Flow Rate FiO2 11/21/16 04:00 96.5 60 20 93/57 98 11/21/16 00:00 98.5 68 20 89/59 98 11/20/16 20:00 98.7 61 20 148/87 97 11/20/16 16:00 97.3 65 20 94/61 97 11/20/16 12:00 97.6 67 19 93/49 96 11/20/16 10:00 98.4 61 20 106/57 94 11/20/16 11/20/16 11/21/16 14:59 22:59 06:59 Intake Total 800 ml 120 ml 120 ml Output Total 150 ml Balance 800 ml 120 ml -30 ml Intake Oral 800 ml 120 ml 120 ml Output Urine Total 150 ml # Voids 5 1 1 # Bowel Movements 0 0 0 Imaging Foot X-Ray 11/15/16 0000 Signed Impressions: Service Date/Time: Tuesday, November 15, 2016 08:32 - CONCLUSION: 1. No acute bony abnormalities identified. Josef Mao MD Physical Exam GENERAL: awake and alert, in no apparent distress. SKIN: Cool and dry, no generalized rash HEAD: Atraumatic. Normocephalic. No temporal or scalp tenderness. EYES: [place] conjunctivae. No scleral icterus. No injection or drainage. ENT: Nose without bleeding, or purulent drainage. Moist oral mucosa. NECK: Trachea midline. No JVD or lymphadenopathy. Supple, nontender, no meningeal signs. CARDIOVASCULAR: Regular rate and rhythm without murmurs, gallops, or rubs. Healed sternotomy incision. RESPIRATORY: Clear to auscultation. Breath sounds equal bilaterally. No wheezes , rales, or rhonchi. GASTROINTESTINAL: Abdomen soft, non-tender, nondistended. Bowel sounds are present and normoactive. No hepato-splenomegaly, or palpable masses. No guarding. MUSCULOSKELETAL: RLE: unremarkable, without clubbing, cyanosis, or edema. No joint tenderness, effusion, or edema noted. No calf tenderness. LLE: Has red and swollen second toe with improvement. . She has nodular lymphangitis going up dorsum of her L foot,BETTER TODAY whole leg, and has several tender LN in her L groin. The LN in groin are smaller. She is tender in the upper calf region. The intensity of redness in her leg is better. The redness of her second toe is better its dry and peeling. NEUROLOGICAL: Non-focal PSYCH: Normal affect, calm and cooperative LINE: PIV with no evidence of infection Assessment & Plan Remarks Reviewed cultures- MSSA, GPR- ? Nocardia Continue IV Ceftriaxone Continue Bactrim ( Augmentin and Bactrim) x 2 weeks w/ FU in our office Genesis Abreu Nov 21, 2016 07:49
[2016-11-21 08:00] VITALS: BP 96/53; PULSE 63; RESP 18; TEMP 98.2; O2SAT 98
[2016-11-21] MEDS: CLARITHROMYCIN 500 MG TAB PO SCH (09:16)
[2016-11-21] MEDS: LISINOPRIL 10 MG TAB PO SCH (09:17)
[2016-11-21] MEDS: APIXABAN 5 MG TABLET PO SCH (09:17)
[2016-11-21] MEDS: CARVEDILOL 12.5 MG TAB PO SCH (09:17)
[2016-11-21] MEDS: LACTOBACILLUS ACIDOPHILUS TAB PO SCH (09:17)
[2016-11-21] MEDS: FUROSEMIDE 40 MG TAB PO SCH (09:17)
[2016-11-21] MEDS: SPIRONOLACTONE 25 MG TAB PO SCH (09:17)
[2016-11-21] MEDS: metFORMIN HCL 500 MG TAB PO SCH (09:18)
[2016-11-21] MEDS: ASPIRIN EC 81 MG TABEC PO SCH (09:18)
[2016-11-21] MEDS: ACETAMINOPHEN/HYDROcodone 325 MG/5 MG TAB PO PRN (09:25)
[2016-11-21] MEDS: ONDANSETRON HCL 4 MG/2 ML VIAL IVP PRN (09:25)
[2016-11-21] MEDS ORDERED: HYDR-3516 PO ×2 (11:29→11:43)
[2016-11-21] MEDS ORDERED: BACT800T5 PO (11:29)
[2016-11-21] MEDS ORDERED: AUGM875T PO (11:29)
--- NOTE | 2016-11-21 11:30 | HHI.DCPOC ---
Discharge Care Plan Diagnosis: (1) Cellulitis of toe of left foot (2) Lymphangitis (3) DM2 (diabetes mellitus, type 2) (4) COPD (chronic obstructive pulmonary disease) Goals to Promote Your Health * To prevent worsening of your condition and complications * To maintain your health at the optimal level Directions to Meet Your Goals Take your medications as prescribed Follow your dietary instruction Follow activity as directed Keep your appointments as scheduled Take your immunizations and boosters as scheduled If your symptoms worsen call your PCP, if no PCP go to Urgent Care Center or Emergency Room Smoking is Dangerous to Your Health. Avoid second hand smoke Call the 24-hour hour crisis hotline for domestic abuse at Darrius Robles MD Nov 21, 2016 11:30
--- NOTE | 2016-11-21 11:31 | HHI.DS ---
Discharge Summary Admission Date Nov 18, 2016 at 15:20 Discharge Date: Nov 21, 2016 Admitting Diagnosis lymphangitis (1) Lymphangitis ICD Code: I89.1 Diagnosis: Principal (2) Cellulitis of toe of left foot ICD Code: L03.032 Diagnosis: Principal Procedures None Brief History - From Admission 56-year-old female with rather complex medical history with hypertension, hyperlipidemia, coronary artery disease status post bypass surgery , diabetes, chronic atrial fibrillation, ischemic cardiomyopathy, congestive heart failure, history of MRSA infection of the sternum who presented to the hospital because of pain and swelling of her left foot second toe. Patient states that 3 days ago she dropped a can on her toe and since then is started developing pain, swelling, redness. She noticed red streaks going up her left leg and she was concerned so she came to the hospital for evaluation. Patient denies any fever, chills, night sweats, rigors. ER physician evaluated the patient and recommended observation the hospital. CBC/BMP: 11/17/16 0535 11/17/16 0535 Imaging Last Impressions Foot MRI 11/17/16 0000 Signed Impressions: Service Date/Time: Thursday, November 17, 2016 13:48 - CONCLUSION: There is nonspecific edema in the soft tissues in the region the metatarsals. This is suggestive of cellulitis. No definite osteomyelitis is seen at this time. No focal loculated fluid collection to indicate a soft tissue abscess is seen at this time. Gilbert Lundy MD Foot X-Ray 11/15/16 0000 Signed Impressions: Service Date/Time: Tuesday, November 15, 2016 08:32 - CONCLUSION: 1. No acute bony abnormalities identified. Josef Mao MD PE at Discharge General: No acute distress. Heart: Regular rate and rhythm. No murmur. Lungs: Clear to auscultation bilaterally. No wheezes, rales, or rhonchi. Breathing is nonlabored. Abdomen: Soft, nontender, nondistended. Erythema extending from the left second toe in a linear fashion to the knee. There is a scab overlying the distal left second toe. Extremities: No lower extremity edema. Psych: Alert and oriented. Pt update on day of discharge The patient states that she feels much better today. She wants to go home. Erythema is improving. Less pain in the leg. Hospital Course The patient was admitted for treatment of left second toe cellulitis with ascending lymphangitis. She was started on IV antibiotics. Podiatry was consulted. No surgical intervention was required infectious disease was consulted. The patient continued to improve on the antibiotics. Recommendations were made by infectious disease for oral antibiotics. She was cleared for discharge by podiatry and infectious disease. The patient was anxious to go home and was felt to be stable for discharge home with oral antibiotics.. Pt Condition on Discharge: Stable Discharge Disposition: Discharge Home Discharge Time: > 30 minutes Discharge Instructions DIET: Follow Instructions for: Heart Healthy Diet, Diabetic Diet Activities you can perform: Regular-No Restrictions Follow up Referrals: Infectious Disease - [address] Worthy Podiatry - 2 Weeks @ [facility] with Juanjo Sweet DPM New Medications: Amoxicillin-Clavulanate (Augmentin) 875-125 mg Tab 875 MG PO BID not for use in CrCl <30 ml/min. Infection #28 Ref 0 TAB Hydrocodone-Acetaminophen (Hydrocodone-Acetaminophen) 5-325 mg Tab 1 TAB PO Q4H PRN PAIN SCALE 1 TO 10 #20 Ref 0 TAB Sulfamethoxazole-Trimethoprim (Bactrim DS) 800-160 Mg Tab 1 TAB PO Q8H Infection #42 TAB Continued Medications: Apixaban (Eliquis) 5 Mg Tab 5 MG PO BID Blood Clot Prevention #60 Ref [address] (Aspirin 81) 81 Mg Tabdr 81 MG PO DAILY Ref 0 TAB Atorvastatin (Atorvastatin) 80 Mg Tab 40 MG PO HS Cholesterol Management #30 Ref 0 TAB Canagliflozin (Invokana) 100 Mg Tab 100 MG PO DAILY Take before 1st meal of day. Blood Sugar Management #30 Ref 0 TAB Carvedilol (Carvedilol) 25 Mg Tab 25 MG PO BID #60 Ref 0 TAB Furosemide (Furosemide) 40 Mg Tab 40 MG PO DAILY #30 Ref 0 TAB Glyburide (Glyburide) 2.5 Mg Tab 2.5 MG PO BID Take with meals at the same time each day Blood Sugar Management # 60 Ref 0 TAB Lisinopril (Lisinopril) 10 Mg Tab 10 MG PO DAILY #30 Ref 0 TAB Metformin (Metformin) 1,000 Mg Tab 1000 MG PO BIDPC With meals Blood Sugar Management #60 Ref 0 TAB Spironolactone (Spironolactone) 25 Mg Tab 25 MG PO DAILY #30 Ref 0 TAB Darrius Robles MD Nov 21, 2016 11:31
[2016-11-21 12:00] VITALS: BP 94/57; PULSE 62; RESP 18; TEMP 96.6; O2SAT 97
== END 2016-11-21 12:31 | disposition home or self-care (01) | DRG 603 ==
LOC: PHED 16:10 → PHEDA 18:02 → PH3A 20:45 → OBSVTOIN 11-18 15:20
PROVIDERS: ADMIT Family Medicine; ATTEND Family Medicine
DX: L03.032 Cellulitis of left toe (principal); I50.9 Heart failure, unspecified; G62.9 Polyneuropathy, unspecified; I10 Essential (primary) hypertension; I25.810 Atherosclerosis of coronary artery bypass graft(s) without angina pectoris; I48.2 Chronic atrial fibrillation; E11.9 Type 2 diabetes mellitus without complications; E78.5 Hyperlipidemia, unspecified; Z95.1 Presence of aortocoronary bypass graft; I25.5 Ischemic cardiomyopathy; Z86.14 Personal history of Methicillin resistant Staphylococcus aureus infection; F12.90 Cannabis use, unspecified, uncomplicated; I25.2 Old myocardial infarction; J44.9 Chronic obstructive pulmonary disease, unspecified; Z87.891 Personal history of nicotine dependence
CPT/HCPCS: 73630; 73720; 76937; 80048; 80053; 80202; 82948; 85025; 85652; 86140; 86403; 87015; 87040; 87070; 87102; 87116; 87118; 87147; 87186; 87205; 87206; 96365; 96375; A9579; G0378; J0692; J0696; J0744; J2405; J2543; J3370; J7030; J7050